=== PATIENT | female | born 1950 | race Asian ===

== ENCOUNTER 2022-11-06 10:08 | Outpatient (AMB) | payer OTHER, SELFPAY ==
--- NOTE | 2022-11-06 10:11 | MHC.OFFVIS ---
Intake Vital Signs 11/06/22 10:13 Height 5 ft 2 in Weight 110 lb BMI 20.1 BP 122/70 Blood Pressure Location Lt brachial Position Sitting Pulse 72 Pulse Source Pulse Oximeter Pulse Oximetry (%) 98 Oxygen Delivery Method Room Air Intake Visit Reasons: Follow up for Headaches Intake Note: pt is here for headaches, patient states she was taking medication for headaches but needs refill and hasnt had the medication for awhile due to no refills Business Intelligence Administrator Required: Yes Business Intelligence Administrator Language: Omani Business Intelligence Administrator Name: corina hagan [id number] Information Interpreted: non-clinical & clinical Accompanied by: Self / Same As Patient Allergies No Known Allergies Allergy (Verified 11/06/22 10:12) Medication List - Last Reconciled 11/06/22 by HEVER Jaimes abacavir 600 mg PO DAILY alendronate 70 mg PO QWEEK atorvastatin 10 mg PO DAILY baclofen 10 mg PO BEDTIME PRN 30 days calcium carbonate-vitamin D3 600 mg-5 mcg (200 unit) 0 tabs PO cyclosporine 0.05% drps ophthalmic (eye) dolutegravir (Tivicay) 50 mg PO DAILY lamivudine 150 mg PO DAILY levothyroxine 50 mcg PO DAILY magnesium oxide 400 mg PO DAILY 30 days riboflavin (vitamin B2) (Vitamin B-2) 200 mg (2 x 100 mg) PO BID 30 days solifenacin 10 mg PO DAILY trospium 20 mg PO DAILY HPI HPI Comments History of Present Illness Details 72-yr-old female presents for f/u visit. Pt denies any significant interval medical changes. She has been having an occasional headache, which she has been using Tylenol for. She still has some neck discomfort- which magnesium and baclofen helped, but has run out. She does note that she has areas on her head that feel a bit bigger nad sore- these come and go. She states her vision is better- after having ? left cataract surgery. No balance issues, falls. Sometimes may have a tremor in the left arm- may feel numb as well. She is able to do her ADLs and IADLs w/o diff. She can be forgetful- a little at times. Her older sister and sister lives in [place]. She has never driven. [facility] Medical History (Updated 11/06/22 @ 11:29 by HEVER Jaimes) HIV (human immunodeficiency virus infection) HLD (hyperlipidemia) Hypothyroidism Kidney disease Osteoporosis Surgical History Hx of cataract surgery Social History Alcohol intake: never Patient Tobacco Use Status: Never used Tobacco Review of Systems Const All systems reviewed & are unremarkable except as noted in HPI and below Physical Exam Vital Signs: Last Vital Signs Pulse 72 11/06/22 10:13 BP 122/70 11/06/22 10:13 Pulse Ox 98 11/06/22 10:13 Oxygen Delivery Method Room Air 11/06/22 10:13 BMI result Body Mass Index 20.1 Const General: cooperative and no acute distress Orientation/consciousness: patient oriented x3 HEENT Other: No palpable scalp tenderness. No visible cysts, papules, rashes, or erythema. Head: Yes normocephalic Resp Effort & Inspection: normal respiratory effort and able to speak in complete sentences Neuro Other: Mild hand fidgeting BUE MADIHA- intact Mild BUE dysmetria on finger-nose- note pt required multiple reinforcements for pt to fully complete finger-nose exam. 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 Code(s): G93.0 - Cerebral cysts Plan Resume Magnesium 400mg qhs. Resume Baclofen 10mg qhs prn cervicalgia/headache. Previous headcahe trials: Amitriptyline- not tolerated. Pt advised to undergo f/u brain MRI to assess status of retrocerebellar arachnoid cyst Orders: Orders MR head/brain wo con Today G93.0 - Cerebral cysts, M54.2 - Cervicalgia, Q04.9 - Congenital malformation of brain, unspecified, R51.9 - Headache, unspecified Medications: New baclofen 10 mg PO BEDTIME 30 days PRN 30 tabs 6RF headache magnesium oxide 400 mg PO DAILY 30 days 30 tabs 6RF Coding Level of Care Code Est Pt Level 4 (66752) Diagnoses Headache R51.9 Cervicalgia M54.2 Congenital malformation of brain Q04.9 Arachnoid cyst G93.0
[2022-11-06 10:13] VITALS: BP 122/70; PULSE 72; O2SAT 98; BMI 20.1
== END 2022-11-06 10:56 | disposition home or self-care (01) ==
PROVIDERS: Visit Provider Nurse Practitioner Family
DX: R51.9 Headache, unspecified (principal); M54.2 Cervicalgia; Q04.9 Congenital malformation of brain, unspecified; G93.0 Cerebral cysts
CPT/HCPCS: 99214

== ENCOUNTER → 2022-11-06 10:08 | Outpatient (BNVA) | payer OTHER, SELFPAY | PROVIDERS: Visit Provider Nurse Practitioner Family | DX: R51.9 Headache, unspecified (principal); M54.2 Cervicalgia; Q04.9 Congenital malformation of brain, unspecified; G93.0 Cerebral cysts | CPT/HCPCS: 99212 ==

== ENCOUNTER 2023-02-14 11:04 | Outpatient (REF) | payer OTHER, SELFPAY ==
--- NOTE | ~2023-02-14 | MR_ITS ---
EXAMINATION: MRI OF THE BRAIN WITHOUT CONTRAST CLINICAL INFORMATION: Cerebral cysts. COMPARISON: There are no prior studies available for comparison at time of dictation. TECHNIQUE: MRI of the brain was obtained using routine sequences without contrast. FINDINGS: No diffusion abnormalities are identified to suggest an acute or subacute infarct. No mass effect or midline shift is seen. There is mild commensurate prominence of the ventricles and sulci consistent with diffuse volume loss. There are a few scattered foci of hyperintense T2 and FLAIR signal in the periventricular and subcortical white matter, most consistent with chronic microvascular ischemic changes. There is a large arachnoid cyst in the posterior fossa which measures approximately 7.4 x 9.4 x 9.0 cm in oblique AP, transverse and craniocaudal dimensions. It does not communicate with the 4th ventricle. There is some mass effect on the dorsal cerebellar hemispheres and cerebellar vermis. The brainstem appears normal. No pathologic magnetic susceptibility artifact is identified on the gradient refocused acquisition. The craniovertebral junction, marrow signal, and midline structures are normal. The major intracranial flow-voids at the level of the [place] are preserved. The dural venous sinus flow-voids are maintained. There have been bilateral lens extractions. The frontal sinuses are hypoplastic. The mastoid air cells and the other paranasal sinuses are well-aerated. MR/MR head/brain wo con IMPRESSION: 1. There is a large arachnoid cyst in the posterior fossa, with mass effect on the cerebellar structures. There is no communication with the ventricular system. Comparison can be made if prior studies become available. 2. There are no acute bleeds or territorial infarcts. 3. There are chronic microvascular ischemic changes and there is diffuse volume loss.
== END 2023-02-14 11:05 | disposition home or self-care (01) ==
LOC: HO.MRI 11:04
PROVIDERS: PCP Internal Medicine; Visit Provider Nurse Practitioner Family
DX: G93.0 Cerebral cysts (principal); Q04.9 Congenital malformation of brain, unspecified; R51.9 Headache, unspecified; M54.2 Cervicalgia
CPT/HCPCS: 70551

== ENCOUNTER 2023-05-09 10:59 | Outpatient (AMB) | payer OTHER, SELFPAY ==
--- NOTE | 2023-05-09 11:03 | A.OFFVIS_ITS ---
Intake Vital Signs 05/09/23 11:04 Height 5 ft 2 in Weight 117 lb BMI 21.4 BP 134/80 Blood Pressure Location Rt brachial Position Sitting Intake Visit Reasons: 6m Follow up Headaches-Confirmed Intake Note: Patient presents for 6 month follow up. she feels like the headaches are the same,she feels dizzy and feels is not normal Allergies No Known Allergies Allergy (Verified 05/09/23 11:07) Medication List - Last Reconciled 05/09/23 by HEVER Jaimes abacavir 600 mg PO DAILY alendronate 70 mg PO QWEEK atorvastatin 10 mg PO DAILY baclofen 10 mg PO BEDTIME PRN 30 days calcium carbonate-vitamin D3 600 mg-5 mcg (200 unit) 0 tabs PO cyclosporine 0.05% drlew ophthalmic (eye) dolutegravir (Tivicay) 50 mg PO DAILY lamivudine 150 mg PO DAILY levothyroxine 50 mcg PO DAILY magnesium oxide 400 mg PO DAILY 30 days riboflavin (vitamin B2) (Vitamin B-2) 200 mg (2 x 100 mg) PO BID 30 days solifenacin 10 mg PO DAILY trospium 20 mg PO DAILY HPI HPI Comments History of Present Illness Details 72-yr-old female presents for f/u visit. Accompanied by her NBA PLAYER, Alina. Pt denies any significant interval medical changes. She is having more headache- TOTH is more pressure, but sometimes head burning heaviness (better when laying down), more like she had a few years ago prior to starting Baclofen and Magnesium. When headache is more bothersome, it is a/w phonophobia. She also endorses buzzing tinnitus more so in the morning, distance vision blurriness, chronic neck cracking and tightness- feeling right sided neck/o ccipital region burning pulling sensation with left head turn. She can be dizzy at times. Denies gait problems, diplopia, dysphagia, urinary/bowel incontinence, weakness. May hear somebody talking around her, but no one is there but maybe her neighbors her chu are thin. These newer neighbors make her nervous/stressed as the neighbors are loud. She is taking Riboflavin qam, Mag 400mg qhs. Baclofen 10mg prn headache, which helps. Does not want to take baclofen too regularly- worried it'll stop working. 02/04/23, MRI OF THE BRAIN WITHOUT CONTR AST FINDINGS: No diffusion abnormalities are identified to suggest an acute or subacute infarct. No mass effect or midline shift is seen. There is mild commensurate prominence of the ventricles and sulci consistent with diffuse volume loss. There are a few scattered foci of hyperintense T2 and FLAIR signal in the periventricular and subcortical white matter, most consistent with chronic microvascular ischemic changes. There is a large arachnoid cyst in the posterior fossa which measures approximately 7.4 x 9.4 x 9.0 cm in oblique AP, transverse and craniocaudal dimensions. It does not communicate with the 4th ventricle. There is some mass effect on the dorsal cerebellar hemispheres and cerebellar vermis. The brainstem appears normal. No pathologic magnetic susceptibility artifact is identified on the gradient refocused acquisition. The craniovertebral junction, marrow signal, and midline structures are normal. The major intracranial flow-voids at the level of the [place] are preserved. The dural venous sinus flow-voids are maintained. There have been bilateral lens extractions. The frontal sinuses are hypoplastic. The mastoid air cells and the other paranasal sinuses are well-aerated. IMPRESSION: 1. There is a large arachnoid cyst ( 7.4 x 9.4 x 9.0 cm in oblique AP, transverse and craniocaudal dimensions) in the posterior fossa, with mass effect on the cerebellar structures. There is no communication with the ventricular system. Comparison can be made if prior studies become available. 2. There are no acute bleeds or territor ial infarcts. 3. There are chronic microvascular ische melissa changes and there is diffuse volume loss. 05/06/2018, [facility], Brain MRI w/o: Retrocerebellar 5 x 8 x 8 cm arachnoid cyst versus giant cisterna magna. 01/29/12, [facility], Brain MRI w/o: large arachnoid cyst in the posterior fossa w/ expansion of the posteriorfossa, remodeling of the calvarium and mild mass effect on the cerebellar structures. Arachnoid cyst measures 9 cm craniocaudally, 5.8 cm anterior posteriorly, 9.5 cm medial laterally. [facility] Medical History (Updated 05/09/23 @ 11:51 by HEVER Jaimes) Kidney disease Hypothyroidism Osteoporosis HLD (hyperlipidemia) HIV (human immunodeficiency virus infection) Surgical History Hx of cataract surgery Social History Alcohol intake: never Patient Tobacco Use Status: Never used Tobacco Physical Exam Vital Signs: Last Vital Signs BP 134/80 05/09/23 11:04 BMI result Body Mass Index 21.4 Const General: cooperative and no acute distress Orientation/consciousness: patient oriented x3 Resp Effort & Inspection: normal respiratory effort and able to speak in complete sentences Neuro Other: Bilateral posterior cervical tightness and tender points. No palpable scalp tenderness Mildly limited cervical range of motion throughout Tandem gait- slightly off-balance but able to take a few steps General: patient oriented x3 and deep tendon reflexes 2+ bilaterally Cranial nerves: Yes CN's II-XII intact bilaterally Cognition (Neuro): normal cognition Motor exam (neuro): 5/5 motor strength present throughout Coordination: [id number] test normal Psych Appearance: grossly normal Mental Status: mental status grossly normal Speech and movement: Normal speech and movement present Affect: normal affect Attitude: cooperative Assessment & Plan Assessment & Plan (1) Headache: Code(s): R51.9 - Headache, unspecified (2) Cervicalgia: Code(s): M54.2 - Cervicalgia (3) Dizziness: Code(s): R42 - Dizziness and giddiness (4) 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 Code(s): G93.0 - Cerebral cysts Plan Reviewed brain MRI- known large posterior fossa arachnoid cyst, cerebral volume loss, and mild white matter changes c/w chronic microangiopathic ischemic changes. We will reach out to Radiology to see if they can compare previous MRI images and reports with most recent MRI findings, as most recent arachnoid cyst measurements are slightly larger than previously noted. Jan 2023: posterior fossa arachnoid cyst measuring approx 7.4 x 9.4 x 9.0 cm in oblique AP, transverse and craniocaudal dimensions) in the posterior fossa, with mass effect on the cerebellar structures. 05/06/2018, [facility], Brain MRI w/o: Retrocerebellar 5 x 8 x 8 cm arachnoid cyst versus giant cisterna magna. 01/29/12, [facility], Brain MRI w/o: posterior fossa arachnoid cyst measuring 9 cm craniocaudally, 5.8 cm anterior posteriorly, 9.5 cm medial laterally.w/ expansion of the posteriorfossa, remodeling of the calvarium and mild mass effect on the cerebellar structures. Will refer pt for home PT, as pt is homebound as she requires asist to safely leave her home- d/t language barrier, she does not drive, dizziness, headache. Riboflavin 400 mg q.a.m. Magnesium 400mg qhs. Trial adding gabapentin 100-200 mg q.h.s. Baclofen 10mg qhs prn cervicalgia/headache. Previous headache trials: Amitriptyline- not tolerated. f/u in 3 months or sooner prn. Orders: Referrals [facility] Referral G93.0 - Cerebral cysts, M54.2 - Cervicalgia, Q04.9 - Congenital malformation of brain, unspecified, R42 - Dizziness and giddiness, R51.9 - Headache, unspecified Medications: New gabapentin 100 - 200 mg (1 - 2 x 100 mg) PO BEDTIME 30 days 60 caps 4RF Refilled magnesium oxide 400 mg PO DAILY 30 days 30 tabs 6RF baclofen 10 mg PO BEDTIME 30 days PRN 30 tabs 6RF headache riboflavin (vitamin B2) (Vitamin B-2) 200 mg (2 x 100 mg) PO BID 30 days 120 tabs 6RF Coding Level of Care Code Est Pt Level 4 (61371) Diagnoses Headache R51.9 Cervicalgia M54.2 Dizziness R42 Congenital malformation of brain Q04.9 Arachnoid cyst G93.0
[2023-05-09 11:04] VITALS: BP 134/80; BMI 21.4
== END 2023-05-09 11:57 | disposition home or self-care (01) ==
PROVIDERS: PCP Internal Medicine; Visit Provider Nurse Practitioner Family
DX: R51.9 Headache, unspecified (principal); M54.2 Cervicalgia; R42 Dizziness and giddiness; Q04.9 Congenital malformation of brain, unspecified; G93.0 Cerebral cysts
CPT/HCPCS: 99214

== ENCOUNTER → 2023-05-09 10:59 | Outpatient (BNVA) | payer OTHER, SELFPAY | PROVIDERS: PCP Internal Medicine; Visit Provider Nurse Practitioner Family | DX: R51.9 Headache, unspecified (principal); R42 Dizziness and giddiness; M54.2 Cervicalgia; G93.0 Cerebral cysts; Q04.9 Congenital malformation of brain, unspecified | CPT/HCPCS: 99212 ==

== ENCOUNTER 2023-09-12 10:52 | Outpatient (AMB) | payer OTHER, SELFPAY ==
--- NOTE | 2023-09-12 10:57 | A.OFFVIS_ITS ---
Vital Signs 09/12/23 11:28 Height 5 ft 2 in Weight 113 lb 8 oz BMI 20.8 BP 120/62 Blood Pressure Location Lt brachial Position Sitting Pulse 67 Pulse Oximetry (%) 98 Oxygen Delivery Method Room Air Intake Visit Reasons: 4 mo f/u-LVM Intake Note: Patient presents for 4 months f/u. When turning on left side feels pain on right side of head. When taking Gabapentin feeling very sleepy and dizzy. Instructor Hairspring Name: Beryl [id number] Information Interpreted: clinical only Accompanied by: Spouse Allergies No Known Allergies Allergy (Verified 09/12/23 11:14) Medication List - Last Reconciled 09/12/23 by HEVER Jaimes abacavir 600 mg PO DAILY alendronate 70 mg PO QWEEK atorvastatin 10 mg PO DAILY baclofen 10 mg PO BEDTIME PRN 30 days calcium carbonate-vitamin D3 600 mg-5 mcg (200 unit) 0 tabs PO cyclosporine 0.05% drps ophthalmic (eye) dolutegravir (Tivicay) 50 mg PO DAILY gabapentin 100 - 200 mg (1 - 2 x 100 mg) PO BEDTIME 30 days lamivudine 150 mg PO DAILY levothyroxine 50 mcg PO DAILY magnesium oxide 400 mg PO DAILY 30 days riboflavin (vitamin B2) (Vitamin B-2) 200 mg (2 x 100 mg) PO BID 30 days solifenacin 10 mg PO DAILY trospium 20 mg PO DAILY HPI Comments Details: 73-yr-old female presents for f/u visit, accompanied by her friend. Pt denies any significant interval medical changes. We were able to obtain previous brain imaging, radiologist was able to compare previous and recent brain mRI results- stable dandy walker type cyst. She can have a quick right occipital focal pain when she turns her head to the right. Denies dizziness. It can occur a few times a day, but then not for a few days. Gabapentin 100mg at bedtime made her too sleepy. She is compliant w/ Mag, B2, and Baclofen. She did not hear from the home PT. [facility] Medical History (Updated 05/09/23 @ 11:51 by HEVER Jaimes) Kidney disease Hypothyroidism Osteoporosis HLD (hyperlipidemia) HIV (human immunodeficiency virus infection) Surgical History Hx of cataract surgery Social History Alcohol intake: never Patient Tobacco Use Status: Never used Tobacco Physical Exam Vital Signs: Last Vital Signs Pulse 67 09/12/23 11:28 BP 120/62 09/12/23 11:28 Pulse Ox 98 09/12/23 11:28 Oxygen Delivery Method Room Air 09/12/23 11:28 BMI result Body Mass Index 20.8 Const General: cooperative and no acute distress Orientation/consciousness: patient oriented x3 Resp Effort & Inspection: normal respiratory effort and able to speak in complete sentences Neuro Other: No [place] scalp tenderness Bilateral R > L neck tightness and tenderness. 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 Code(s): G93.0 - Cerebral cysts Category: Medical Plan Reviewed brain MRI reuslst again0 stable arachnoid cyst. Jan 2023: posterior fossa arachnoid cyst measuring approx 7.4 x 9.4 x 9.0 cm in oblique AP, transverse and craniocaudal dimensions) in the posterior fossa, with mass effect on the cerebellar structures. 05/06/2018, [facility], Brain MRI w/o: Retrocerebellar 5 x 8 x 8 cm arachnoid cyst versus giant cisterna magna. 01/29/12, [facility], Brain MRI w/o: posterior fossa arachnoid cyst measuring 9 cm craniocaudally, 5.8 cm anterior posteriorly, 9.5 cm medial laterally.w/ expansion of the posteriorfossa, remodeling of the calvarium and mild mass effect on the cerebellar structures. ? Will again pt for home PT for PT eval & tx for myofascial release, craniosacral tx. Pt is homebound- pt needs assist, dizziness, headache, does not drive, language barrier., as pt is homebound as she requires asist to safely leave her home- d/t language barrier, she does not drive, dizziness, headache. Pt will need information mailed to her in [place]. Riboflavin 400 mg q.a.m. Magnesium 400mg qhs. Stop gabapentin 100mg- caused sleepiness. Try increasing Baclofen from 10mg qhs to 10mg bid or 20mg qhs- for cervicalgia/headache. Previous headache trials: Amitriptyline- not tolerated. ? f/u in 6 months or sooner prn. Orders: Referrals [facility] Referral M54.2 - Cervicalgia, R51.9 - Headache, unspecified Medications: Changed From baclofen 10 mg PO BEDTIME 30 days PRN 30 tabs 6RF headache To baclofen 10 mg PO BID 30 days 60 tabs 6RF headache Refilled magnesium oxide 400 mg PO DAILY 30 days 30 tabs 6RF riboflavin (vitamin B2) (Vitamin B-2) 200 mg (2 x 100 mg) PO BID 30 days 120 tabs 6RF Discontinued gabapentin Discontinued Reason: Doctor's Order 100 - 200 mg (1 - 2 x 100 mg) PO BEDTIME 30 days 60 caps 4RF Coding Level of Care Code Est Pt Level 4 (08142) Diagnoses Headache R51.9 Cervicalgia M54.2 Congenital malformation of brain Q04.9 Arachnoid cyst G93.0
[2023-09-12 11:28] VITALS: BP 120/62; PULSE 67; O2SAT 98; BMI 20.8
== END 2023-09-12 11:50 | disposition home or self-care (01) ==
PROVIDERS: PCP Internal Medicine; Visit Provider Nurse Practitioner Family
DX: R51.9 Headache, unspecified (principal); M54.2 Cervicalgia; Q04.9 Congenital malformation of brain, unspecified; G93.0 Cerebral cysts
CPT/HCPCS: 99214

== ENCOUNTER → 2023-09-12 10:52 | Outpatient (BNVA) | payer OTHER, SELFPAY | PROVIDERS: PCP Internal Medicine; Visit Provider Nurse Practitioner Family | DX: R51.9 Headache, unspecified (principal); Q04.9 Congenital malformation of brain, unspecified; M54.2 Cervicalgia; G93.0 Cerebral cysts | CPT/HCPCS: 99212 ==

== ENCOUNTER 2024-04-02 09:28 | Outpatient (AMB) | payer OTHER, SELFPAY ==
[2024-04-02 10:00] VITALS: BMI 21.3
--- NOTE | 2024-04-02 10:00 | A.OFFVIS_ITS ---
Vital Signs 04/02/24 10:00 Height 5 ft 2 in Weight 116 lb 6 oz BMI 21.3 Intake Visit Reasons: 7 month f/u Phone Specialist Required: Yes Phone Specialist Name: Ken [id number] Information Interpreted: non-clinical & clinical Accompanied by: Self / Same As Patient Allergies No Known Allergies Allergy (Verified 04/02/24 10:04) Medication List - Last Reconciled 04/02/24 by Rickie Rowe PA-C abacavir 600 mg PO DAILY alendronate 70 mg PO QWEEK amlodipine 5 mg PO DAILY atorvastatin 10 mg PO DAILY baclofen 10 mg PO BID 30 days calcium carbonate-vitamin D3 600 mg-5 mcg (200 unit) 0 tabs PO cyclobenzaprine 10 mg PO TID cyclosporine 0.05% drps ophthalmic (eye) diclofenac sodium 1% topical dolutegravir (Tivicay) 50 mg PO DAILY lamivudine 150 mg PO DAILY levothyroxine 50 mcg PO DAILY magnesium oxide 400 mg PO DAILY 30 days mupirocin 2% topical BID prednisolone acetate 1% drps ophthalmic (eye) prednisone 20 mg PO BID riboflavin (vitamin B2) (Vitamin B-2) 200 mg (2 x 100 mg) PO BID 30 days solifenacin 10 mg PO DAILY sulfamethoxazole-trimethoprim 800-160 mg 1 tab PO BID tizanidine 4 mg PO BEDTIME trospium 20 mg PO DAILY HPI Comments Details: 73-yr-old female presents for f/u visit, for arachnoid. PCP is Dr. Way at [facility]. Pt denies any significant interval medical changes. We were able to obtain previous brain imaging, radiologist was able to compare previous and recent brain mRI results- stable dandy walker type cyst. She can have a quick right occipital focal pain when she turns her head to the right. 2-3 headaches per week worse in the mornings last about 1-3 hour, occipital to the trapezius, heaviness, stretches the SCM to the with head twist to the left and it goes away 2-3 min later. Dizziness persists, bilateral leg pain intense all day worse in the evening. Her Balance is wobbly, has pain down the L. leg> R. side. Denies Nausea, Vomiting, Falls. She is concerned regarding contraindications of muscle relaxers and taking both simultaneously. Discussed patient take the medication every other night as needed for pain, Tizanidine 400mg PO. Discussed using a heating pad for neck and to use [place] balm or [place], topically as needed for pain. Discussed taking B2 - helps with reduction and inflammation of nerves and m igraines. Memory, diet, mood, and sleep is good at baseline with medications she sleeps better. ADLs independent, can dress herself, cook, clean, lives alone. She is compliant w/ Mag, B2, and Baclofen. She is not open to PT visits at this time. [facility] Medical History Kidney disease Hypothyroidism Osteoporosis HLD (hyperlipidemia) HIV (human immunodeficiency virus infection) Surgical History Hx of cataract surgery Social History Alcohol intake: never Patient Tobacco Use Status: Never used Tobacco Physical Exam Vital Signs: BMI result Body Mass Index 21.3 Const General: cooperative and no acute distress Orientation/consciousness: patient oriented x3 Resp Effort & Inspection: normal respiratory effort and able to speak in complete sentences Neuro Other: No palpbale scalp tenderness Bilateral R > L neck tightness and tenderness. General: patient oriented x3 Cranial nerves: Yes CN's II-XII intact bilaterally and Yes Ability to bilater ally rotate head present Cognition (Neuro): normal cognition Psych Appearance: grossly normal Mental Status: mental status grossly normal Speech and movement: Normal speech and movement present Affect: normal affect Attitude: cooperative Assessment & Plan Assessment & Plan (1) Arachnoid cyst: Comment: retrocerebellar arachnoid cyst and Dandy-Walker spectrum anatomy. 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 Code(s): Q04.9 - Congenital malformation of brain, unspecified Category: Medical (4) Headache: Code(s): R51.9 - Headache, unspecified Category: Medical (5) Cervicalgia: Code(s): M54.2 - Cervicalgia Category: Medical Plan Reviewed brain MRI results stable arachnoid cyst. Jan 2023: posterior fossa arachnoid cyst measuring approx 7.4 x 9.4 x 9.0 cm in oblique AP, transverse and craniocaudal dimensions) in the posterior fossa, with mass effect on the cerebellar structures. 05/06/2018, [facility], Brain MRI w/o: Retrocerebellar 5 x 8 x 8 cm arachnoid cyst versus giant cisterna magna. 01/29/12, [facility], Brain MRI w/o: posterior fossa arachnoid cyst measuring 9 cm craniocaudally, 5.8 cm anterior posteriorly, 9.5 cm medial laterally.w/ expansion of the posteriorfossa, remodeling of the calvarium and mild mass effect on the cerebellar structures. ?Cervicalgia and Migraines PT prefers to do home PT exercises per direction, for myofascial release, craniosacral tx. Pt is homebound- pt needs assist, dizziness, headache, does not drive, language barrier and requires assistance to safely leave her home. Pt will need information mailed to her in [place]. Riboflavin 400 mg q.a.m. Magnesium 400mg qhs. Stopped gabapentin 100mg- caused sleepiness. Tizanidine 400mg PO daily, may skip a day if she feels too sedated and can cut pill in half as needed, she may rotate the medications, skip a day of Baclofen and take Tizanidine instead, depending on what works best for her. Try increasing Baclofen from 10mg qhs to 10mg bid or 20mg qhs- for cervicalgia/headache. Previous headache trials: Amitriptyline- not tolerated. ? EMG Bilateral legs numbness and pain. MRI monitor arachnoid cyst. f/u in 2 months. Orders: Orders NE electromyogram (EMG) Today G93.0 - Cerebral cysts, M54.2 - Cervicalgia, R26.89 - Other abnormalities of gait and mobility, R51.9 - Headache, unspecified MR head/brain wo/w con Today Q04.9 - Congenital malformation of brain, unspecified Medications: Refilled baclofen 10 mg PO BID 60 tabs 6RF headache 30 days Coding Level of Care Code Est Pt Level 4 (83053) Diagnoses Arachnoid cyst G93.0 Balance disorder R26.89 Congenital malformation of brain Q04.9 Headache R51.9 Cervicalgia M54.2 Time Spent (min) 50 Comment Worsening bilateral leg pain.
== END 2024-04-02 11:27 | disposition home or self-care (01) ==
PROVIDERS: PCP Internal Medicine; Visit Provider Physician Assistant Medical
DX: G93.0 Cerebral cysts (principal); R26.89 Other abnormalities of gait and mobility; Q04.9 Congenital malformation of brain, unspecified; R51.9 Headache, unspecified; M54.2 Cervicalgia
CPT/HCPCS: 99214

== ENCOUNTER → 2024-04-02 09:28 | Outpatient (BNVA) | payer OTHER, SELFPAY | PROVIDERS: PCP Internal Medicine; Visit Provider Physician Assistant Medical | DX: G93.0 Cerebral cysts (principal); R26.89 Other abnormalities of gait and mobility; Q04.9 Congenital malformation of brain, unspecified; M54.2 Cervicalgia; R51.9 Headache, unspecified | CPT/HCPCS: 99212 ==

== ENCOUNTER → 2024-05-15 10:09 | Outpatient (BNV) | payer OTHER, SELFPAY | PROVIDERS: PCP Internal Medicine; Visit Provider Radiology Diagnostic Radiology | DX: Q04.9 Congenital malformation of brain, unspecified (principal) | CPT/HCPCS: 70553 ==

== ENCOUNTER 2024-05-15 10:12 | Outpatient (REF) | payer OTHER, SELFPAY ==
--- NOTE | ~2024-05-15 | MR_ITS ---
EXAMINATION: MR BRAIN WITHOUT AND WITH CONTRAST CLINICAL INFORMATION: Congenital malformation of the brain, unspecified. Arachnoid cyst. Monitoring for mass effect COMPARISON: MRI dated February 14, 2023. TECHNIQUE: Multiplanar, multisequence MRI of the brain was obtained before and after the intravenous administration of 5.0 mL gadolinium based (Gadavist) without reported immediate complications. FINDINGS: There is a 6 x 10 x 10 cm extra-axial, nonenhancing, nonseptated, nonrestricted diffusion fluid signal characteristic abnormality centered in the posterior cranial fossa slightly to the left and crossing midline and right to left with the mass effect upon the cisterna magna and cerebellar hemispheres. The fourth ventricle is patent. The cerebellar vermis is intact. The craniocervical junction is intact. There is thinning of the occipital bone with the questionable areas of dehiscence. The brainstem is intact without signal abnormality or enhancing lesion. The cochlear and vestibular components of the 8th cranial nerves are normal. The cisternal segments and entry zones of the trigeminal nerves demonstrated no signal abnormality or enhancing mass. The cisternal segments and entry zones of the hypoglossal cranial nerves demonstrate no signal abnormality or enhancing lesion. The transverse sinuses sigmoid sinuses and jugular bulbs are patent with a dominant on the right side. The flow-void signal within the main vessels of the posterior cranial fossa is normal. There is mild CSF prominence of the Meckel's caves, bilaterally. There is a shallow nearly absent dorsal sella. The sellar/suprasellar region demonstrated no enhancing lesion or masses. The optic chiasm is intact. The craniocervical junction is intact. There is no descensus of the cerebellar tonsils below foramen magnum. No acute intracranial hemorrhage, midline shift, hydrocephalus or herniation. Baldwin-white matter differentiation is normal. No restricted diffusion. No enhancing lesion or signal abnormality within the orbits. MR/MR head/brain wo/w con IMPRESSION: Overall stable since prior examination. Consider a large arachnoid cyst versus pseudomeningocele, posterior cranial fossa. Electronically signed by: Ortega Craven MD 05/18/2024 08:57 AM EST
[2024-05-15] MEDS: gadobutroL 7.5 ML VIAL IVPUSH (11:30)
== END 2024-05-15 10:13 | disposition home or self-care (01) ==
LOC: HO.MRI 10:12
PROVIDERS: PCP Internal Medicine; Visit Provider Physician Assistant Medical
DX: Q04.9 Congenital malformation of brain, unspecified (principal)
CPT/HCPCS: 70553; A9585

== ENCOUNTER 2024-06-04 09:47 | Outpatient (AMB) | payer OTHER, SELFPAY ==
--- NOTE | 2024-06-04 08:06 | A.OFFVIS_ITS ---
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 MRI was compared with old MRI and Stable Dandy Walker Cyst. She can have a quick right occipital focal pain when she turns her head to the right. She is still having headaches 3-5 x a week, which last 5 - 10 minutes. Her head feels very heavy and worse in the mornings for about 1-3 hours. She has photophobia, phonophobia with flashes of light. The headaches are occipital to the trapezius, with heaviness, she stretches the SCM with a head twist to the left and it goes away for 2-3 min. She uses the home electronic massager on the lowest speed. When standing she must lean on something or stand still, because she feels like she loses her balance. She doesn't use a cane and doesn't want one. She feels dizzy and wobbly on her feet due to balance issues. She c/o intense bilateral leg pain all day worse in the evening. Her Balance is wobbly, has pain down the L. leg> R. side. Denies nausea, vomiting, Falls. She is concerned regarding contraindications of muscle relaxers and taking both simultaneously. Discussed patient take the medication every other night as needed for pain. Discussed using a heating pad for neck and to use [place] balm or [place], topically as needed for pain. Discussed taking B2 as it helps with reduction with inflammation of nerves and migraines. Memory, diet, mood, and sleep is good at baseline with medications she sleeps better. ADLs independent, can dress herself, cook, clean, lives alone. She is compliant w/ Mag, B2, and Baclofen and Tizanidine. She is not open to PT visits at this time. [facility] Medical History Kidney disease Hypothyroidism Osteoporosis HLD (hyperlipidemia) HIV (human immunodeficiency virus infection) Surgical History Hx of cataract surgery Social History Alcohol intake: never Patient Tobacco Use Status: Never used Tobacco Review of Systems Const All systems reviewed & are unremarkable except as noted in HPI and below Physical Exam Vital Signs: Last Vital Signs Pulse 70 06/04/24 09:58 BP 130/60 06/04/24 09:58 Pulse Ox 98 06/04/24 09:58 Oxygen Delivery Method Room Air 06/04/24 09:58 BMI result Body Mass Index 21.0 Const General: cooperative and no acute distress Orientation/consciousness: patient oriented x3 Eyes Pupils: Equal, round and reactive pupils present Neck Other: Difficulty moving the neck to the right and left and limited ROM bilaterally. Resp Effort & Inspection: normal respiratory effort and able to speak in complete sentences Neuro Other: No palpbale scalp tenderness Bilateral R > L neck tightness and tenderness. General: patient oriented x3 Cranial nerves: Yes CN's II-XII intact bilaterally, Yes Facial sensation intact/muscles of mastication intact, Yes Equal, round and reactive pupils present and Yes Normal accommodation reflex present Cognition (Neuro): normal cognition Motor exam (neuro): Abnormal motor strength present (4/5 Lower and Upper Ext) and Abnormal muscle tone present (Frail ) Deep tendon reflexes (DTR's): Right triceps reflex intensity grade: 2+, Left triceps reflex intensity grade: 2+, Rt Biceps (C5, C6): 2+, Left biceps reflex intensity grade: 2+, Right brachioradialis reflex intensity grade: 2+, Left brachioradialis reflex intensity grade: 2+, Right patellar reflex intensity grade: 2+ and Left patellar reflex intensity grade: 2+ Psych Thought process: Normal thought process present Thought content: Normal thought content present Results Reviewed Results Reviewed: MRI May 15, 2024 IMPRESSION: Overall stable since prior examination. Consider a large arachnoid cyst versus pseudomeningocele, posterior cranial fossa. 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: Code(s): H81.90 - Unspecified disorder of vestibular function, unspecified ear Category: Medical Qualifiers: Laterality: left Qualified Code(s): H81.92 - Unspecified disorder of vestibular function, left ear (4) Spasmodic torticollis: Code(s): G24.3 - Spasmodic torticollis Category: Medical (5) Headache: Code(s): R51.9 - Headache, unspecified Category: Medical Qualifiers: Headache chronicity pattern: chronic headache Headache type: cluster Intractability: intractable Qualified Code(s): G44.021 - Chronic cluster headache, intractable (6) Arachnoid cyst: Comment: retrocerebellar arachnoid cyst and Dandy-Walker spectrum anatomy. 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 Code(s): Q04.9 - Congenital malformation of brain, unspecified Category: Medical (8) Headache: Code(s): R51.9 - Headache, unspecified Category: Medical Qualifiers: Headache chronicity pattern: chronic headache Headache type: cluster Intractability: intractable Qualified Code(s): G44.021 - Chronic cluster headache, intractable Plan Reviewed brain MRI results stable arachnoid cyst. MRI May 15, 2024 IMPRESSION: Jan 2023: posterior fossa arachnoid cyst measuring approx 7.4 x 9.4 x 9.0 cm in oblique AP, transverse and craniocaudal dimensions) in the posterior fossa, with mass effect on the cerebellar structures. 05/06/2018, [facility], Brain MRI w/o: Retrocerebellar 5 x 8 x 8 cm arachnoid cyst versus giant cisterna magna. 01/29/12, [facility], Brain MRI w/o: posterior fossa arachnoid cyst measuring 9 cm craniocaudally, 5.8 cm anterior posteriorly, 9.5 cm medial laterally.w/ expansion of the posteriorfossa, remodeling of the calvarium and mild mass effect on the cerebellar structures. Spasmodic Torticollis 06/04/2024 Difficulty with rotation of the neck, ROM is limited to the Left>R. Would like to try Botox in the future ?Cervicalgia and Migraines Sumatriptan Trial for the onset of headaches take 50mg PO, may take one additional tablet 2 hours after the first dose. Do not exceed more than 2 tablets with in 24 hours for a total of 100mg PO daily. PT prefers to do home PT exercises per direction, for myofascial release, craniosacral tx. Pt is homebound- pt needs assist, dizziness, headache, does not drive, language barrier and requires assistance to safely leave her home. Pt will need information mailed to her in [place]. Riboflavin 400 mg q.a.m. Magnesium 400mg qhs. Stopped gabapentin 100mg- caused sleepiness. Tizanidine 400mg PO daily, may skip a day if she feels too sedated and can cut pill in half as needed, she may rotate the medications, skip a day of Baclofen and take Tizanidine instead, depending on what works best for her. Try increasing Baclofen from 10mg qhs to 10mg bid or 20mg qhs- for cervicalgia/headache. Previous headache trials: Amitriptyline- not tolerated. ? EMG Bilateral legs numbness and pain. (Patient did not complete due to language barrier) will try again. f/u in 2 months. Medications: New tizanidine 4 mg PO BEDTIME 30 tabs 2RF Cervicaliga MDD 4mg M54.2 - Cervicalgia sumatriptan succinate take 1 tab at onset of headache; if no relief may repeat 1 tab after at least 2 hrs; max = 4 tabs/24 hr PO 12 tabs 0RF headaches Refilled baclofen 10 mg PO BID 30 days 60 tabs 6RF headache magnesium oxide 400 mg PO DAILY 30 days 30 tabs 6RF riboflavin (vitamin B2) (Vitamin B-2) 200 mg (2 x 100 mg) PO BID 30 days 120 tabs 6RF Patient Instructions: May rotate Tizanidine and Baclofen for muslce strain. Start using Sumatriptan for headaches as directed. Continue with magnesium 400mg PO daily and Riboflaving 200mg daily. Use a cane if balance issues are worsening. F/U in 3-4 months. Coding Level of Care Code Est Pt Level 4 (16559) Diagnoses Balance disorder R26.89 Cervicalgia M54.2 Balance problem due to vestibular dysfunction of left ear H81.92 Laterality: left Spasmodic torticollis G24.3 Intractable chronic cluster headache G44.021 Headache chronicity pattern: chronic headache Headache type: cluster Intractability: intractable Arachnoid cyst G93.0 Congenital malformation of brain Q04.9 Time Spent (min) 40
[2024-06-04 09:58] VITALS: BP 130/60; PULSE 70; O2SAT 98; BMI 21.0
--- OUTSIDE RECORDS SUMMARY | 2024-06-04 10:16 | XMS_ITS | Clinical Summary ---
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 Active magnesium oxide (MAG-OX) 400 mg (241.3 elemental magnesium) tablet Magnesium Oxide -Mg Supplement 400 (240 Mg) MG Tab 3 Active abacavir (ZIAGEN) 300 mg tablet Take 1 tablet (300 mg total) by mouth 2 (two) times a day. Active baclofen (LIORESAL) 10 mg tablet Take 1 Tablet by mouth 3 times daily. Active calcium carbonate-vitami n D3 600 mg-5 mcg (200 unit) per tablet Take 1 tablet by mouth 2 (two) times a day. 2 Active cyanocobalamin (VITAMIN B-12) 1,000 mcg tablet Take 500 mcg by mouth daily. Active cyclobenzaprine (FLEXERIL) 10 mg tablet Take 1 Tablet by mouth 3 times daily as needed. 3 times a day for 3 days Active dolutegravir (TIVICAY) 50 mg tablet Take by mouth. Activ e gabapentin (NEURONTIN) 100 mg capsule Take 2 Capsules by mouth at bedtime. 4 Active guaiFENesin (MUCINEX) 600 mg 12 hr tablet Take 1 tablet (600 mg total) by mouth 2 (two) times a day. 4 Active lamiVUDine (EPIVIR) 150 mg tablet Take 1 tablet (150 mg total) by mouth 2 (two) times a day. Active levothyroxine (SYNTHROID, LEVOTHROID) 50 mcg tablet Take 1 tablet (50 mcg total) by mouth 1 (one) time each day. 4 Active lidocaine 4 % patch Apply 1 Patch topically every 12 hours. 4 Active lidocaine (LIDODERM) 5 % patch Place 1 Patch onto the skin every 24 hours. Apply for no more than 12 hours in any 24 hour period. Active magnesium oxide (MAG-OX) 400 mg (241.3 elemental magnesium) tablet Take 400 mg by mouth daily. Active predniSONE (DELTASONE) 20 mg tablet 3 tab for 3 days,2 tab for 3 days,1 tab for 3 days 4 Active riboflavin (VITAMIN B2) 100 mg tablet Take 1 capsule by mouth 1 (one) time each day. Active trospium (SANCTURA) 20 mg tablet Take 1 tablet (20 mg total) by mouth 1 (one) time each day. 4 Active camphor-methyl salicyl-menthoL (Salonpas) 3.1 %-10 %-6 % (large) adhesive patch,medicatedI ndications:Chron ic back pain, unspecified back location, unspecified back pain laterality,Right shoulder pain, unspecified chronicity Apply 1 patch topically 1 (one) time each day if needed (pain). Remove at bedtime. 30 patch 5 4 Active mupirocin (BACTROBAN) 2 % ointmentIndicati ons:Eczema, unspecified type Apply 1 Application topically 2 (two) times a day. 22 g 3 4 Active tiZANidine (ZANAFLEX) 4 mg tabletIndication s:Chronic back pain, unspecified back location, unspecified back pain laterality,Right shoulder pain, unspecified chronicity Take 1 tablet (4 mg total) by mouth at bedtime as needed for muscle spasms. 30 tablet 3 4 Active naproxen (EC NAPROSYN) 500 mg EC tabletIndication s:osteoarthritis ,pain Take 1 tablet (500 mg total) by mouth 2 (two) times a day if needed for mild pain. Do not crush, chew, or split. Take with food. 60 tablet 11 4 Active atorvastatin (LIPITOR) 10 mg tablet TAKE 1 TABLET BY MOUTH DAILY 90 tablet 2 4 Active diclofenac (VOLTAREN) 1 % topical gel Apply 2 g topically 2 (two) times a day. 100 g 1 4 Active alendronate (FOSAMAX) 70 mg tablet TAKE 1 TABLET BY MOUTH EVERY 7 DAYS 12 tablet 2 4 Active amLODIPine (NORVASC) 5 mg tablet TAKE 1 TABLET BY MOUTH DAILY 90 tablet 1 4 Active triamcinolone (KENALOG) 0.1 % cream Apply to affected area 1-2 times daily as needed. Avoid face and groin. 30 g 5 09/13/19 25 Active Active Problems Problem Noted Date Diagnosed Date Primary hypertension 05/22/2023 Nephrolithiasis 04/08/2018 Overview (01/15/2024): S/p lithotripsy; 10/2013 h/o Stent Tubular adenoma of colon 04/08/2018 Overview (01/15/2024): S/p resection HIV (human immunodeficiency virus infection) 04/2017 Overview (01/15/2024): On HAART Hyperlipidemia 07/31/2017 Hypothyroidism 07/31/2017 Constipation 09/26/2016 Osteoporosis 04/08/2013 Chronic sinusitis 10/16/2012 Carpal tunnel syndrome 10/15/2012 Insomnia 10/15/2012 Immunizations Name Administration Dates Next Due Hep A, Unspecified 04/23/2004 Hepatitis B (Opwvigc-V-Zalvp , Recombivax HB-Adult) 19yo and older 04/23/2004 Influenza trivalent, 0.5mL ( Fluzone High-dose) 65yo and older 01/02/2019 Pneumococcal conjugate 13 va lent (Prevnar 13, PCV13) 2mo and older 08/05/2013 Pneumococcal polysaccharide 23 valent (Pneumovax 23) 2yo and older 03/06/2011 Tdap Tetanus diptheria acell ular pertussis (Boostrix; Adacel) 7yo and older 09/18/2011 Surgical History Surgery Date Site/Laterality Comments BOWEL RESECTION PROCEDURE: HISTORICAL BOWEL RESECTION; COMMENT: for tubular adenoma CYSTOSCOPY PROCEDURE: HISTORICAL CYSTOSCOPY LITHOTRIPSY 10/2013 PROCEDURE: HISTORICAL LITHOTRIPSY; COMMENT: and Stent placement Medical History Medical History Date Comments Carpal tunnel syndrome 10/15/2012 DX:Carpal tunnel syndrome Chronic sinusitis 10/16/2012 DX:Chronic sin usitis Constipation 09/26/2016 DX:Constipation HIV (human immunodeficiency virus infection) (CMS/HCC) 11/20/2017 DX:HIV (human immunodeficien cy virus infection) (HCC); COMMENT: On HAART Hyperlipidemia 07/31/2017 DX:Hyperlipidemi a Hypothyroidism 07/31/2017 DX:Hypothyroidis m Insomnia 10/15/2012 DX:Insomnia Nephrolithiasis 04/08/2018 DX:Nephrolithias is; COMMENT: S/p lithotripsy; 10/2013 h/o Stent Osteoporosis 04/08/2013 DX:Osteoporosis Tubular adenoma of colon 04/08/2018 DX:Tubu lar adenoma of colon; COMMENT: S/p resection HCV (hepatitis C virus) DX:HCV ( hepatitis C virus); COMMENT: treated by GI HBV (hepatitis B virus) infection DX:HBV (hepatitis B virus) infection; COMMENT: cleared Social History Tobacco Use Types Packs/Day Years Used Date Smoking Tobacco: Never Smokeless Tobacco: Never Alcohol Use Standard Drinks/Week Comments No 0 (1 standard drink = 0.6 oz pur e alcohol) Comments Unknown Sex and Gender Information Value Date Recorded Sex Assigned at Not on file Legal Sex Female 8:11 PM EST Gender Identity Not on file Sexual Orientation Not on file Obstetrics History Last Filed Vital Signs Vital Sign Reading Time Taken Comments Blood Pressure 120/48 02/24/2024 9:29 AM EST Pulse 74 02/24/2024 9:29 AM EST Temperature 36.6 ??C (97.8 ??F) 02/24/2024 9:29 AM ES T Respiratory Rate - - Oxygen Saturation 98% 02/24/2024 9:29 AM EST Inhaled Oxygen Concentration - - Weight 52.4 kg (115 lb 9.6 oz) 02/24/2024 9:29 A M EST Height 157.5 cm (5' 2 ) 02/24/2024 9:29 AM EST Body Mass Index 21.14 02/24/2024 9:29 AM EST Plan of Treatment Upcoming Encounters Date Type Department Care Team (Late st Contact Info) Description 06/23/2024 10:45 AM EST Office Visit Internal Medicine - [place] [address] [facility] [address] [place] [address] Kashif Hemphill, JOSELITO [address] [facility] [address] [place] [address] Health Maintenance Due Date Last Done Comments Meningococcal ACWY Vaccine (1 - Risk 2-dose series) 1952 MMR Vaccines (1 of 2 - Risk 2-dose series) 1968 Hepatitis B Vaccines (2 of 3 - Risk 3-dose series) 05/21/2004 04/23/2004 Hepatitis A Vaccines (2 of 2 - Risk 2-dose series) 10/21/2004 04/23/2004 RSV Immunization Patients 60+ Years Old (1 - Risk 60-74 years 1-dose series) 2010 Depression Screening 03/24/2022 Falls Risk Assessment 03/24/2022 Hepatitis C Screening 03/24/2022 Medicare Annual Wellness Visit 03/24/2022 Social Influencers of Health Screening 03/24/2022 Hypertension/CHF/CAD Annual BMP Blood Test 06/05/2023 09/29/2021 Breast Cancer Screening 12/17/2024 12/18/19 23, 12/13/2021, 12/08/2020, Additional history exists Cholesterol Screening (Lipid Panel) 05/24/2028 05/24/2023 Osteoporosis Screening (Bone Density Screening) 12/08/2030 12/08/2020 Colorectal Cancer Screening: Colonoscopy 03/03/2031 03/03/2021 DTaP,Tdap,and Td Vaccines (3 - Td or Tdap) 05/23/2032 05/23/2022, 09/18/2011 Pneumococcal Vaccine: 50+ Years Completed 05/23/2022, 02/09/2020, 08/24/2015, Additional history exists Zoster Vaccines Completed 07/25/2022, 05/23/2022 COVID-19 Vaccine Completed 01/24/2024, 03/2022, 09/16/2021, Additional history exists Influenza Vaccine Completed 01/24/2024, , 03/10/2022, Additional history exists HIB Vaccines Aged Out No longer eligi ble based on patient's age to complete this topic HPV Vaccines Aged Out No longer eligi ble based on patient's age to complete this topic IPV Vaccines Aged Out No longer eligi ble based on patient's age to complete this topic Meningococcal B Vacine Aged Out No lo nger eligible based on patient's age to complete this topic RSV Immunization Patients Under 20 months Aged Out No longer eligible based on patient's age to complete this topic Varicella Vaccines Aged Out No longer eligible based on patient's age to complete this topic Procedures Procedure Name Priority Date/Time Associated Diagnosis Comments LIPID PANEL Routine 05/24/2023 [facility] SCREENING DIGITAL Routine 12/17/2022 5:22 PM EDT Encounter for screening mammogram for malignant neoplasm of breast ANNUAL BMP BLOOD TEST Routine 09/29/2021 COLONOSCOPY Routine 03/03/2021 [facility] DEXA AXIAL SKELETON Routine 12/08/2020 10:37 AM EDT Encounter for screening for osteoporosis from Last 3 Months or Most Recently Relevant to Health Maintenance Results * Lipid panel (05/24/2023) LDL/HDL Ratio 2 0 - 4 Triglycerides 99 0 - 150 mg/dL Cholesterol 192 0 - 200 mg/dL HDL 82 >=40 mg/dL LDL Cholesterol 91 0 - 100 mg/dL Blood Venous blood specimen / Unknown Historical Provider MD LAB BLOOD ORDERABLES Adrienne l Result * [facility] SCREENING DIGITAL (12/17/2022 5:22 PM EDT) Anatomical Region Laterality Modality Mammography 12/17/2022 10:5 1 AM EDT Narrative 12/17/2022 5:22 PM EDT [facility] Diagnostic Imaging Department [address] [place] [address] Patient: ??MI PARIS ?/Age/Sex: 1950 72 - F Unit#: ??[id number] ? Location/Status: ??SPDIMAM/REG CLI ? Mnemonic/Ordering Site: ??DIGSC/SPMAM Ordering Physician: ??KEISHA WAY MD [facility] Screening Digital - 12/17/22 - 1109 Report Status:Signed EXAM: [facility] Screening Digital EXAM DATE AND TIME: 12/17/2022 11:10 AM HISTORY: ??Screening. COMPARISON: ??12/13/21, 12/08/20, 12/25/18 TECHNIQUE: Bilateral digital breast tomosynthesis was performed in the CC and MLO projections. Computer aided detection with Kindful 3D 3.1 was employed. TISSUE DENSITY: b. There are scattered areas of fibroglandular density. FINDINGS: No suspicious masses, grouped microcalcifications, or areas of architectural distortion are seen. The skin and vascularity are unremarkable. IMPRESSION: Stable mammographic appearance of the breasts. ??No evidence of malignancy is seen. A negative mammogram in the presence of a clinically suspicious palpable abnormality does not preclude the possibility of malignancy or alter the indications for biopsy. BI-RADS: ??Category 1: Negative RECOMMENDATION(S): 1: Routine screening mammogram BILATERAL in 1 year. Dictating Physician: ??BEV MILLS MD Electronically Signed by: ??BEV MILLS MD Dic Date/Time: ??12/17/221720 Sign date/Time: ??12/17/221721 Procedure Note Bev Mills MD - 05/28/2023 [facility] Diagnostic Imaging Department [address] [place] [id number] Patient: MI PARIS /Age/Sex: 1950 - 72 - F Unit#: [id number] [facility]ing [facility] Ordering Physician: KEISHA WAY MD [facility] Screening Digital - 12/17/22 - 1109 Report Status:Signed EXAM: [facility] Screening Digital EXAM DATE AND TIME: 12/17/2022 11:10 AM HISTORY: Screening. COMPARISON: 12/13/21, 12/08/20, 12/25/18 TECHNIQUE: Bilateral digital breast tomosynthesis was performed in the CCand MLO projections. Computer aided detection with Kindful 3D 3.1was employed. TISSUE DENSITY: b. There are scattered areas of fibroglandular density. FINDINGS: No suspicious masses, grouped microcalcifications, or areas ofarchitectural distortion are seen. The skin and vascularity are unremarkable. IMPRESSION: Stable mammographic appearance of the breasts. No evidence of malignancyis seen. A negative mammogram in the presence of a clinically suspicious palpable abnormality does not preclude the possibility of malignancy or alter the indications for biopsy. BI-RADS: Category 1: Negative RECOMMENDATION(S): 1: Routine screening mammogram BILATERAL in 1 year. Dictating Physician: BEV MILLS MD Electronically Signed by: BEV MILLS MD Dic Date/Time: 12/17/221720 Sign date/Time: 12/17/2217[address] MD IMG BI PROCEDURES Final Result * Annual BMP Blood Test (09/29/2021) Pathologist [facility] Annual BMP Blood Test abstracted Historical Provider HEALTH MAINTENANCE Final Result * Colonoscopy (03/03/2021) [facility] Colonoscopy abstracted, no interpretation Anatomical Region Laterality Modality Other Historical Provider HEALTH MAINTENANCE Final Result * [facility] DEXA AXIAL SKELETON (12/08/2020 10:37 AM EDT) Anatomical Region Laterality Modality Mammography 12/08/2020 8:27 AM EDT Narrative 12/08/2020 10:37 AM EDT [facility] Diagnostic Imaging Department [address] [place], [place] [id number] Patient: ??MI PARIS ?/Age/Sex: 1950 - - Unit#: ??[id number] ? Location/Status: ??SPDIMAM/REG CLI ? Mnemonic/Ordering Site: ??MAMDEXAAX/SPMAM Ordering Physician: ??KEISHA WAY MD [facility] Dexa Axial Skeleton - 12/08/20929 HISTORY: ??The patient is a 70-year-old postmenopausal female with clinical concern for metabolic bone disease. FINDINGS: ??Dual energy x-ray absorptiometry of the lumbar spine and femurs is performed. The mean bone mineral density at L1-L4 is 0.902 gm/cm2 which is 77% of that of young normals and 97% of that of age matched controls. This yields a T-score of -2.2 and a Z-score of -0.2 which is diagnostic of osteopenia. The mean bone mineral density of the femurs bilaterally is 0.873 gm/cm2 which is 87% of that of young normals and 110% of that of age matched controls. ??This yields a T-score of -1.1 and a Z-score of 0.6 which is diagnostic of osteopenia. The T-score of the right femoral neck is -2.1 and that of the left femoral neck is -1.9 which is diagnostic of osteopenia. IMPRESSION: 1. Osteopenia. 2. FRAX analysis yields a 10-year probability of major osteoporotic fracture of 17.7% and a 10-year probability of hip fracture of 3.8%. Code 73266 Dictating Physician: ??RICARDO SOUTH MD Electronically Signed by: ??RICARDO SOUTH MD Dic Date/Time: ??12/08/20 1036 Sign date/Time: ??12/08/20 1037 Procedure Note Ricardo South MD - 04/18/2022 [facility] Diagnostic Imaging Department [address] [place] [id number] Patient: MI PARIS /Age/Sex: 1950 - 70 - F Unit#: [id number] [facility] Ordering Physician: KEISHA WAY MD [facility] Dexa Axial Skeleton - 12/08/20929 HISTORY: The patient is a 70-year-old postmenopausal female withclinical concern for metabolic bone disease. FINDINGS: Dual energy x-ray absorptiometry of the lumbar spine and femursis performed. The mean bone mineral density at L1-L4 is 0.902 gm/cm2 which is77% of that of young normals and 97% of that of age matched controls. Thisyields a T-score of -2.2 and a Z-score of -0.2 which is diagnostic of osteopenia. The mean bone mineral density of the femurs bilaterally is 0.873 gm/wm5bxxco is 87% of that of young normals and 110% of that of age matched controls.This yields a T-score of -1.1 and a Z-score of 0.6 which is diagnostic ofosteopenia. The T-score of the right femoral neck is -2.1 and that of the left femoralneck is -1.9 which is diagnostic of osteopenia. IMPRESSION: 1. Osteopenia. 2. FRAX analysis yields a 10-year probability of major osteoporoticfracture of 17.7% and a 10-year probability of hip fracture of 3.8%. 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
--- OUTSIDE RECORDS SUMMARY | 2024-06-04 10:16 | XMS_ITS | Clinical Summary ---
Author Organization [facility] Address [address] [place] [phone] Phone Care Team Providers Care Furnace Maintenance Name Role Phone Keisha Way MD Primary Care Provider [phone] Allergies Active Allergy Reactions Criticality Noted Date Comments Oxycodone-Acetaminophen 01/07/2023 Other reaction(s): unknown Medications abacavir (ZIAGEN) 300 MG tablet Take 1 tablet by mouth 2 (two) times a day Active alendronate (FOSAMAX) 70 MG tablet Take 1 tablet by mouth 1 (one) time per week Active atorvastatin (LIPITOR) 10 MG tablet Take 1 tablet by mouth 1 (one) time each day Active lamiVUDine (EPIVIR) 150 MG tablet Take 1 tablet by mouth 1 (one) time each day Active levothyroxine (SYNTHROID, LEVOTHROID) 50 MCG tablet Take 1 tablet by mouth 1 (one) time each day Active baclofen (LIORESAL) 10 MG tablet TAKE 1 TO 2 TABLETS BY MOUTH EVERY NIGHT AT BEDTIME NEEDED FOR NECK PAIN OR HEADACHE 1 Active Tivicay 50 MG tablet Take 50 mg by mouth 1 (one) time each day 1 Active MAGnesium-Oxide 400 (241.3 Mg) MG tablet Take 1 tablet by mouth at night if needed 1 Active Restasis 0.05 % ophthalmic emulsion USE 1 DROP INTO BOTH EYES TWICE DAILY 1 Active Riboflavin (Vitamin B-2) 100 MG tablet Take 2 tablets by mouth 2 (two) times a day 1 Active Calcium Carb-Cholecalci ferol (Calcium-Vitami n D3) 600-200 MG-UNIT tablet Take 1 tablet by mouth 2 (two) times a day 1 Active triamcinolone (KENALOG) 0.025 % cream Apply topically 2 (two) times a day Active Diclofenac Sodium 1 % gel APPLY 1 DOSE TOPICALLY TWICE DAILY 3 Active Active Problems Problem Noted Date Diagnosed Date Chronic kidney disease, stage 2 (mild) 2 Hypertensive chronic kidney disease 01/01/2022 Hypertensive chronic kidney disease stage 3 12/22 Acute nontraumatic kidney injury 09/14/2020 Stage 3b chronic kidney disease 09/14/2020 Human immunodeficiency virus infection Renal colic 09/14/2020 Renal stone 09/14/2020 Vitamin D deficiency 09/14/2020 Immunizations Name Administration Dates Next Due Pneumococcal Polysaccharide 08/24/2015 Family History Relation Status Comments Father Mother Social History Tobacco Use Types Packs/Day Years Used Date Smoking Tobacco: Never Smokeless Tobacco: Never Tobacco Cessation:Counseling Given: Not Answered Alcohol Use Standard Drinks/Week Comments No 0 (1 standard drink = 0.6 oz pur e alcohol) Comments Unknown Sex and Gender Information Value Date Recorded Sex Assigned at Not on file Legal Sex Female 4:42 PM EST Gender Identity Not on file Sexual Orientation Not on file Last Filed Vital Signs Vital Sign Reading Time Taken Comments Blood Pressure 116/62 02/14/2024 9:22 AM EDT Pulse 74 02/14/2024 9:22 AM EDT Temperature - - Respiratory Rate - - Oxygen Saturation 98% 01/07/2023 1:07 PM EDT Inhaled Oxygen Concentration - - Weight 54.1 kg (119 lb 3.2 oz) 02/14/2024 9:22 A M EDT Height 152.4 cm (5') 01/16/2021 8:55 AM EDT Body Mass Index 23.28 01/16/2021 8:55 AM EDT Plan of Treatment Upcoming Encounters Date Type Department Care Team (Late st Contact Info) Description 02/22/2025 1:00 PM EST Office Visit [facility] [address] [phone] William Whipple MD [address] [phone] Health Maintenance Due Date Last Done Comments Breast Cancer Screening 1950 Colorectal Cancer Screening: Annual FOBT 08/08/1999 Colorectal Cancer Screening: Colonoscopy 08/08/1999 Colorectal Cancer Screening: Sigmoidoscopy 08/08/1999 Hepatitis B Vaccine (1 of 3 - Risk 3-dose series) 2010 04/23/2004 Influenza Vaccine (#1) 2023 01/19/2019, 2018 Pneumococcal Vaccine: 65+ Years Completed 02/09/2020, 08/24/2015, 08/05/2013, Additional history exists Insurance * Guarantor: [employer] Account Type Relation to Patient Date of Phone Billing Address Personal/Family Self [address] ([id number]) [facility] ([id number]) Care Teams Furnace Maintenance Relationship Specialty Start Date End Date Keisha Way MD [address] [place] [phone] PCP - General 05/02/20
== END 2024-06-04 10:51 | disposition home or self-care (01) ==
PROVIDERS: PCP Internal Medicine; Visit Provider Physician Assistant Medical
DX: R26.89 Other abnormalities of gait and mobility (principal); M54.2 Cervicalgia; H81.92 Unspecified disorder of vestibular function, left ear; G24.3 Spasmodic torticollis; G44.021 Chronic cluster headache, intractable; G93.0 Cerebral cysts; Q04.9 Congenital malformation of brain, unspecified
CPT/HCPCS: 99214

== ENCOUNTER → 2024-06-04 09:47 | Outpatient (BNVA) | payer OTHER, SELFPAY | PROVIDERS: PCP Internal Medicine; Visit Provider Physician Assistant Medical | DX: R26.89 Other abnormalities of gait and mobility (principal); M54.2 Cervicalgia; H81.92 Unspecified disorder of vestibular function, left ear; G24.3 Spasmodic torticollis; G44.021 Chronic cluster headache, intractable; G93.0 Cerebral cysts; Q04.9 Congenital malformation of brain, unspecified | CPT/HCPCS: 99212 ==

== ENCOUNTER 2024-09-15 09:12 | Outpatient (AMB) | payer OTHER, SELFPAY ==
--- NOTE | 2024-09-15 09:18 | MHC.OFFVIS ---
Vital Signs 09/15/24 09:19 Height 5 ft 2 in Weight 110 lb 6 oz BMI 20.2 BP 120/70 Blood Pressure Location Lt brachial Position Sitting Pulse 68 Pulse Source Pulse Oximeter Pulse Oximetry (%) 98 Oxygen Delivery Method Room Air Intake Visit Reasons: 3mon follow-up Intake Note: Patient presents follow up migraine medication. Butter Melter Required: Yes Butter Melter Language: Icelandic Butter Melter Services: Butter Melter Present Butter Melter Name: Danae [id number] Information Interpreted: non-clinical & clinical Allergies No Known Allergies Allergy (Verified 09/15/24 09:26) HPI Comments Details: 74-yr-old female presents for f/u visit, of stable dandy walker cyst. 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 MRI Apr 2024 was similar to old MRI and Stable Dandy Walker Cyst. She had a fall, 2months ago and slipped on icy snow but did not hit her head. She can have a quick right occipital focal pain when she turns her head to the right. She has 3-5 headaches a week, which last 5 - 10 minutes. Her head feels heavy and worse in the mornings for about 1-3 hours. The pain radiates occipitally to the trapezius, with a pressure, she stretches the SCM and trapezius with a twist to the left side and it goes away for 2-3 min. She denies vertigo, dizziness, gait imbalance. She does not use a cane. She is independent in all ADLS, can dress herself, cook, clean and lives alone. She denies photophobia, phonophobia with flashes of light, and or auras. She is taking both muscle relaxers and we reviewed SE of each medication today, Tizanidine and Cyclobenzaprine, and she may take the medication every other night as needed for pain. We also discussed using a heating pad for her neck pain, tiger balm or bengay topically as needed. We also discussed taking B2 as it helps with reduction in inflammation of nerves and migraines. Her memory, mood, diet and sleep are okay at baseline with medications she sleeps better. She is compliant w/ Mag, now will start B2, and Baclofen, or Tizanidine PRN pain. She had labs recently at [facility] PCP Dr. Keisha Way. [facility] Medical History Kidney disease Hypothyroidism Osteoporosis HLD (hyperlipidemia) HIV (human immunodeficiency virus infection) Surgical History Hx of cataract surgery Social History Alcohol intake: never Patient Tobacco Use Status: Never used Tobacco Physical Exam Vital Signs: Last Vital Signs Pulse 68 09/15/24 09:19 BP 120/70 09/15/24 09:19 Pulse Ox 98 09/15/24 09:19 Oxygen Delivery Method Room Air 09/15/24 09:19 BMI result Body Mass Index 20.2 Const Other: she has lost 5 pounds since last visit General: cooperative and no acute distress Nutritional Appearance: thin Orientation/consciousness: patient oriented x3 HEENT Face and sinus: Yes face symmetric Eyes Pupils: Equal, round and reactive pupils present Resp Effort & Inspection: normal respiratory effort and able to speak in complete sentences Neuro General: patient oriented x3 and moves all extremities Cranial nerves: Yes Equal, round and reactive pupils present, Yes Normal accommodation reflex present, Yes Normal facial strength present, Yes Midline tongue present, Yes Ability to bilaterally rotate head present (with limited ROM bilaterally) and Yes Ability to bilaterally elevate shoulders present Gait exam (Neuro): Wide-based gait present Motor exam (neuro): Abnormal motor strength present (4/5) bilateral upper extremity and Abnormal muscle tone present Deep tendon reflexes (DTR's): Right triceps reflex intensity grade: 2+ Coordination: [id number] test normal, tandem gait normal and does not sway with eyes open Psych Speech and movement: Normal speech and movement present Affect: normal affect 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: Code(s): H81.90 - Unspecified disorder of vestibular function, unspecified ear Category: Medical Qualifiers: Laterality: left Qualified Code(s): H81.92 - Unspecified disorder of vestibular function, left ear (4) Spasmodic torticollis: Code(s): G24.3 - Spasmodic torticollis Category: Medical (5) Headache: Code(s): R51.9 - Headache, unspecified Category: Medical Qualifiers: Headache chronicity pattern: chronic headache Headache type: cluster Intractability: intractable Qualified Code(s): G44.021 - Chronic cluster headache, intractable (6) Arachnoid cyst: Comment: retrocerebellar arachnoid cyst and Dandy-Walker spectrum anatomy. 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 Code(s): Q04.9 - Congenital malformation of brain, unspecified Category: Medical (8) Headache: Code(s): R51.9 - Headache, unspecified Category: Medical Qualifiers: Headache chronicity pattern: chronic headache Headache type: cluster Intractability: intractable Qualified Code(s): G44.021 - Chronic cluster headache, intractable Plan Reviewed brain MRI results stable arachnoid cyst. MRI May 15, 2024, will f/u with MRI in Apr 2025 or sooner if symptoms indicate imagining. IMPRESSION: Jan 2023: posterior fossa arachnoid cyst measuring approx 7.4 x 9.4 x 9.0 cm in oblique AP, transverse and craniocaudal dimensions) in the posterior fossa, with mass effect on the cerebellar structures. 05/06/2018, [facility], Brain MRI w/o: Retrocerebellar 5 x 8 x 8 cm arachnoid cyst versus giant cisterna magna. 01/29/12, [facility], Brain MRI w/o: posterior fossa arachnoid cyst measuring 9 cm craniocaudally, 5.8 cm anterior posteriorly, 9.5 cm medial laterally.w/ expansion of the posteriorfossa, remodeling of the calvarium and mild mass effect on the cerebellar structures. Spasmodic Torticollis 06/04/2024 Difficulty with rotation of the neck, ROM is limited to the L>R. Would like to try Botox in the future declines ?Cervicalgia and Migraines Sumatriptan Trial for the onset of headaches take 50mg PO, may take one additional tablet 2 hours after the first dose. Do not exceed more than 2 tablets with in 24 hours for a total of 100mg PO daily. PT prefers to do home PT exercises per direction, for myofascial release, craniosacral tx. Pt is homebound- pt needs assist, dizziness, headache, does not drive, language barrier and requires assistance to safely leave her home. Pt will need information mailed to her in Icelandic. Riboflavin 400 mg q.a.m. Magnesium 400mg qhs. Stopped gabapentin 100mg- caused sleepiness. Tizanidine 400mg PO daily, may skip a day if she feels too sedated and can cut pill in half as needed, she may rotate the medications, skip a day of Baclofen and take Tizanidine instead, depending on what works best for her and the pain level. Try increasing Baclofen from 10mg qhs to 10mg bid or 20mg qhs- for cervicalgia/headache. Previous headache trials: Amitriptyline- not tolerated. ? EMG Bilateral legs numbness and pain. (Patient did not complete due to language barrier) will try again. f/u in 4 months Patient Instructions: Sleep Hygiene provided: set a scheduled bedtime and wake time to help regulate the circadian rhythm and balance the release of pituitary hormones. Sleep in a dark room, temperatures below 68 degrees, and no devices n bed. Limit caffeinated products 6 hours prior to bed, and limit fluids 2-4 hours prior to bed. Gentle night yoga, diffusing essential oils, and playing soft music can be relaxing. Coding Level of Care Code Est Pt Level 4 (77520) Diagnoses Balance disorder R26.89 Cervicalgia M54.2 Balance problem due to vestibular dysfunction of left ear H81.92 Laterality: left Spasmodic torticollis G24.3 Intractable chronic cluster headache G44.021 Headache chronicity pattern: chronic headache Headache type: cluster Intractability: intractable Arachnoid cyst G93.0 Congenital malformation of brain Q04.9 Time Spent (min) 25
[2024-09-15 09:19] VITALS: BP 120/70; PULSE 68; O2SAT 98; BMI 20.2
--- OUTSIDE RECORDS SUMMARY | 2024-09-15 09:45 | XMS_ITS | Clinical Summary ---
Author Organization [address] [facility] Address [address] [place] [address] Phone Care Team Providers Care Phone Screener Name Role Phone Keisha Way MD Primary Care Provider [phone] Allergies No known active allergies Medications calcium [...] mouth 2 (two) times a day. Active lidocaine 4 % patch Apply 1 [...] at bedtime. 30 patch 5 4 Active tiZANidine (ZANAFLEX) 4 mg tabletIndication [...] 4 Active triamcinolone (KENALOG) 0.1 % cream APPLY TOPICALLY TO THE AFFECTED AREA 1 TO 2 TIMES DAILY NEEDED. AVOID FACE AND GROIN 30 g 1 5 Active mupirocin (BACTROBAN) 2 % ointmentIndicati ons:Eczema, unspecified type Apply 1 Application topically 2 (two) times a day. 60 g 3 5 Active levothyroxine (SYNTHROID, LEVOTHROID) 50 mcg tablet Take 1 tablet (50 mcg total) by mouth 1 (one) time each day. 90 tablet 3 5 Active Active Problems Problem Noted Date Diagnosed Date Primary hypertension 05/22/2023 Nephrolithiasis 04/08/2018 Overview (01/15/2024): S/p lithotripsy; 10/2013 h/o Stent Tubular adenoma of colon 04/08/2018 Overview (01/15/2024): S/p resection HIV (human immunodeficiency virus infection) ([facility] V24, [facility] V28) 11/20/2017 Overview (01/15/2024): On HAART Hyperlipidemia 07/31/2017 Hypothyroidism 07/31/2017 Constipation 09/26/2016 Osteoporosis 04/08/2013 Chronic sinusitis 10/16/2012 Carpal tunnel syndrome 10/15/2012 Insomnia 10/15/2012 Encounters Date Type Department Care Team Description 08/04/2024 Telephone Internal Medicine - [address] [phone] Jackelin Knight MA Form ([facility]) 07/02/2024 8:30 AM EDT Office Visit Internal Medicine [address] [place] [phone] Kashif Hemphill NP Primary hypertension (Primary Dx); Hypothyroidism, unspecified type; Currently asymptomatic HIV infection, with history of HIV-related illness ([facility] V24, [facility] V28); Osteoporosis, unspecified osteoporosis type, unspecified pathological fracture presence; Hyperlipidemia, unspecified hyperlipidemia type; Chronic back pain, unspecified back location, unspecified back pain laterality; Eczema, unspecified type; Cirrhosis of liver without ascites, unspecified hepatic cirrhosis type ([facility] V24, [facility] V28) from Last 3 Months Immunizations Name Administration Dates Next Due Hep A, Unspecified 04/23/2004 Hepatitis B (Tncaeve-A-Tdyvl , Recombivax HB-Adult) 19yo and older 04/23/2004 [...] 09/26/2016 DX:Constipation HIV (human immunodeficiency virus infection) ([facility] V24, [facility] V28) 11/20/2017 DX:HIV (human im munodeficiency virus infection) (HCC); COMMENT: On HAART Hyperlipidemia [...] Sign Reading Time Taken Comments Blood Pressure 102/60 07/02/2024 8:30 AM EDT Pulse 75 07/02/2024 8:30 AM EDT Temperature 36.7 ??C (98 ??F) 07/02/2024 8:30 AM EDT Respiratory Rate - - Oxygen Saturation 99% 07/02/2024 8:30 AM EDT Inhaled Oxygen Concentration - - Weight 50.1 kg (110 lb 6.4 oz) 07/02/2024 8:30 A M EDT Height 157.5 cm (5' 2 ) 07/02/2024 8:30 AM EDT Body Mass Index 20.19 07/02/2024 8:30 AM EDT Plan of Treatment Upcoming Encounters Date Type Department Care Team (Late st Contact Info) Description 11/19/2024 9:00 AM EDT Office Visit Internal Medicine - [place] [address] [facility] [address] [place] [address] MD [address] [facility] [address] [place] [phone] Health Maintenance Due Date Last Done Comments Meningococcal ACWY Vaccine (1 - Risk 2-dose series) 1952 MMR Vaccines (1 of 2 - Risk 2-dose series) 1968 Hepatitis B Vaccines (2 of 3 - Risk 3-dose series) 05/21/2004 04/23/2004 Hepatitis A Vaccines (2 of 2 - Risk 2-dose series) 10/21/2004 04/23/2004 RSV Immunization Adult Patients (1 - Risk 60-74 years 1-dose series) 2010 Depression Screening 03/24/2022 Falls Risk Assessment 03/24/2022 Hepatitis C Screening 03/24/2022 Social Influencers of Health Screening 03/24/2022 Hypertension/CHF/CAD Annual BMP Blood Test 06/05/2023 09/29/2021 COVID-19 Vaccine (7 - Pfizer risk season) 2024 01/24/2024, 03/03/2022, 09/16/2021, Additional history exists Breast Cancer Screening 12/17/2024 12/18/19, 12/13/2021, 12/08/2020, Additional history exists Cholesterol Screening (Lipid Panel) 05/24/2028 05/24/2023 Osteoporosis Screening (Bone Density Screening) 12/08/2030 12/08/2020 Colorectal Cancer Screening: Colonoscopy 03/03/2031 03/03/2021 DTaP,Tdap,and Td Vaccines (3 - Td or Tdap) 05/23/2032 05/23/2022, 09/18/2011 Pneumococcal Vaccine: 50+ Years Completed 05/23/2022, 02/09/2020, 08/24/2015, Additional history exists Zoster Vaccines Completed 07/25/2022, 05/23/2022 Influenza Vaccine Completed 01/24/2024, , 03/10/2022, Additional history exists HIB Vaccines Aged Out No longer eligi ble based on patient's age to complete this topic HPV Vaccines Aged Out No longer eligi ble based on patient's age to complete this topic IPV Vaccines Aged Out No longer eligi ble based on patient's age to complete this topic Meningococcal B Vaccine Aged Out No l onger eligible based on patient's age to complete this topic RSV Immunization Patients Under 20 months Aged Out No longer eligible based on patient's age to complete this topic Varicella Vaccines Aged Out No longer eligible based on patient's age to complete this topic Procedures Procedure Name Priority Date/Time Associated Diagnosis Comments LIPID PANEL Routine 05/24/2023 [facility] SCREENING DIGITAL Routine 12/17/2022 5:22 PM EDT Encounter for screening mammogram for malignant neoplasm of breast ANNUAL BMP BLOOD TEST Routine 09/29/2021 COLONOSCOPY Routine 03/03/2021 [facility] DEXA AXIAL SKELETON Routine 12/08/2020 10:37 AM [...] mg/dL Blood Venous blood specimen / Unknown us Historical Provider LAB BLOOD ORDERABLES Adrienne l Result * [facility] SCREENING DIGITAL (12/17/2022 5:22 PM EDT) Anatomical Region Laterality Modality Mammography 12/17/2022 10:5 1 AM EDT Narrative 12/17/2022 5:22 PM EDT [facility] Diagnostic Imaging Department [address] [place], [place] [address] Patient: ??MI PARIS ?/Age/Sex: 1950 - 72 - F Unit#: ??[id number] ? Location/Status: ??SPDIMAM/REG CLI ? Mnemonic/Ordering Site: ??DIGSC/SPMAM Ordering Physician: ??KEISHA WAY MD [facility] Screening Digital - 12/17/22 - 1109 Report Status:Signed EXAM: [facility] Screening Digital EXAM DATE AND TIME: 12/17/2022 11:10 AM HISTORY: ??Screening. COMPARISON: ??12/13/21, 12/08/20, 12/25/18 TECHNIQUE: Bilateral digital breast tomosynthesis was performed in the CC and MLO projections. Computer aided detection with [employer] 3D 3.1 was employed. TISSUE DENSITY: b. [...] Signed by: ??BEV MILLS MD Dic Date/Time: ??12/17/22 172 Sign date/Time: ??12/17/22 172 Procedure Note Bev Mills MD - 05/28/2023 [facility] Diagnostic Imaging Department [address] [place] [id number] Patient: PARISMIO.B./Age/Sex: 1950 - 72 - F Unit#: [id number] Location/Status: [facility]/REG CLI Mnemonic/Ordering Site: [facility] Ordering Physician: KEISHA WAY MD [facility] Screening Digital - 12/17/22 - 1109 Report Status:Signed EXAM: [facility] Screening Digital EXAM DATE AND TIME: 12/17/2022 11:10 AM HISTORY: Screening. COMPARISON: 12/13/21, 12/08/20, 12/25/18 TECHNIQUE: Bilateral digital breast tomosynthesis was performed in the CCand MLO projections. Computer aided detection with [employer] 3D 3.1was employed. TISSUE DENSITY: b. There [...] Result * Annual BMP Blood Test (09/29/2021) Annual BMP Blood Test abstracted Historical Provider HEALTH MAINTENANCE Final Result * Colonoscopy (03/03/2021) Colonoscopy abstracted, no interpretation Anatomical Region Laterality Modality Other Historical Provider HEALTH MAINTENANCE Final Result * [facility] DEXA AXIAL SKELETON (12/08/2020 10:37 AM EDT) Anatomical Region Laterality Modality Mammography 12/08/2020 8:27 AM EDT Narrative 12/08/2020 10:[facility] [address] [place] [id number] Patient: ??MI PARIS ?/Age/Sex: 1950 Unit#: ??[id number] ? Location/Status: ??SPDIMAM/REG CLI ? Mnemonic/Ordering Site: [...] probability of hip fracture of 3.8%. Code 35687 Dictating Physician: ??RICARDO SOUTH MD Electronically Signed by: ??RICARDO SOUTH MD Dic Date/Time: ??12/08/20 1036 Sign date/Time: ??12/08/20 1037 Procedure Note Ricardo South MD - 04/18/2022 [facility] Diagnostic Imaging Department [address] [place], [place] [address] Patient: MI PARIS./Age/Sex: 1950 - 70 - F Unit#: [id number] [facility]ing Site[facility] Ordering Physician: KEISHA AWY MD [facility] Dexa Axial Skeleton - 12/08/20929 HISTORY: The [...] density of the femurs bilaterally is 0.873 gm/[id number] is 87% of that of young normals [...] probability of hip fracture of 3.8%. Code 58632 Dictating Physician: RICARDO SOUTH MD Electronically Signed by: RICARDO SOUTH MD Dic Date/Time: 12/08/20 1036 Sign date/Time: 12/08/[address] MD IMG BI PROCEDURES Final Result from Last 3 Months or Most Recently Relevant to Health Maintenance Insurance [facility] Member Subscriber Plan / Payer (Ef fective 2015-Present) Name:Mi Paris Relation to Subscriber:Self Name:Mi Paris Payer ID:[id number] Group ID:[id number] Type:Not on file Address: [address] [facility] [place] [address] Care Teams Phone Screener Relationship Specialty Start Date End Date Keisha Way MD [address] [facility] [address] [place] [address] PCP - General Internal Medicine 06/10/12
== END 2024-09-15 10:10 | disposition home or self-care (01) ==
LOC: HO.HSMS 09:13
PROVIDERS: PCP Internal Medicine; Visit Provider Physician Assistant Medical
DX: R26.89 Other abnormalities of gait and mobility (principal); M54.2 Cervicalgia; H81.92 Unspecified disorder of vestibular function, left ear; G24.3 Spasmodic torticollis; G44.021 Chronic cluster headache, intractable; G93.0 Cerebral cysts; Q04.9 Congenital malformation of brain, unspecified
CPT/HCPCS: 99214

== ENCOUNTER → 2024-09-15 09:12 | Outpatient (BNVA) | payer OTHER, SELFPAY | PROVIDERS: PCP Internal Medicine; Visit Provider Physician Assistant Medical | DX: R26.89 Other abnormalities of gait and mobility (principal); M54.2 Cervicalgia; H81.92 Unspecified disorder of vestibular function, left ear; G44.021 Chronic cluster headache, intractable; G24.3 Spasmodic torticollis; G93.0 Cerebral cysts; Q04.9 Congenital malformation of brain, unspecified | CPT/HCPCS: 99212 ==

== ENCOUNTER 2025-01-18 10:45 | Outpatient (AMB) | payer OTHER, SELFPAY ==
--- OUTSIDE RECORDS SUMMARY | 2025-01-13 07:52 | XMS_ITS | Encounter Summary ---
Author Organization [facility] Address [address] [place] [address] Care Team Providers Care Local Company Truck Driver Name Role Phone Keisha Way MD Primary Care Provider [phone] Reason for Referral * Imaging (Routine) - Closed Specialty Diagnoses / Procedures Referred By Contac t Referred To Contact Radiology Diagnoses Menopausal state Procedures BD Bone Density DXA Axial Skeleton Keisha Way MD [address] [address] Phone: tel: fax: [address] [address] Phone: tel: Referral ID Status Reason Start Date Expiration Date Visits Re quested Visits Authorized [id number] Closed 11/19/2024 11/19/2025 1 1 Reason for Visit * Imaging (Routine) - Closed Specialty Diagnoses / Procedures Referred By Contac t Referred To Contact Radiology Diagnoses Menopausal state Procedures BD Bone Density DXA Axial Skeleton Keisha Way MD [address] [address] Phone: tel: fax: [address] [phone] Phone: tel: Referral ID Status Reason Start Date Expiration Date Visits Re quested Visits Authorized [id number] Closed 11/19/2024 11/19/2025 1 1 Encounter Details Date Type Department Care Team (Latest Contact Info) Description 01/13/2025 7:52 AM EDT - 01/13/2025 11:59 PM EDT Hospital Encounter [facility] Bone Density [address] [place] [address] Menopausal state Discharge Disposition: Home or Self Care Social History Tobacco Use Types Packs/Day Years Used Date Smoking Tobacco: Never Smokeless Tobacco: Never Alcohol Use Standard Drinks/Week Comments No 0 (1 standard drink = 0.6 oz pur e alcohol) Comments No Sex and Gender Information Value Date Recorded Sex Assigned at Not on file Legal Sex Female 8:11 PM EST Gender Identity Not on file Sexual Orientation Not on file documented as of this encounter Medications at Time of Discharge abacavir (ZIAGEN) 300 mg tablet Take 1 tablet (300 mg total) by mouth 2 (two) times a day. alendronate (FOSAMAX) 70 mg tablet TAKE 1 TABLET BY MOUTH EVERY 7 DAYS 12 tablet 2 12/14/2024 amLODIPine (NORVASC) 5 mg tablet TAKE 1 TABLET BY MOUTH DAILY 90 tablet 1 04/20/2024 atorvastatin (LIPITOR) 10 mg tablet TAKE 1 TABLET BY MOUTH DAILY 90 tablet 2 12/14/2024 baclofen (LIORESAL) 10 mg tablet Take 1 Tablet by mouth 3 times daily. calcium carbonate (CALCIUM ORAL) Calcium Carb-Cholecalcif bernice 600-5 MG-MCG Tab 07/19/2022 calcium carbonate-vitamin D3 600 mg-5 mcg (200 unit) per tablet Take 1 tablet by mouth 2 (two) times a day. 07/08/2021 camphor-methyl salicyl-menthoL (Salonpas) 3.1 %-10 %-6 % (large) adhesive patch,medicatedInd ications:Chronic back pain, unspecified back location, unspecified back pain laterality,Right shoulder pain, unspecified chronicity Apply 1 patch topically 1 (one) time each day if needed (pain). Remove at bedtime. 30 patch 5 02/24/2024 clotrimazole-betam ethasone (LOTRISONE) 1-0.05 % cream Apply topically 2 (two) times a day. 30 g 1 11/19/2024 cyanocobalamin (VITAMIN B-12) 1,000 mcg tablet Take 500 mcg by mouth daily. cyclobenzaprine (FLEXERIL) 10 mg tablet Take 1 Tablet by mouth 3 times daily as needed. 3 times a day for 3 days cycloSPORINE (RESTASIS) 0.05 % ophthalmic emulsion apply 1 Drop to the eye daily. diclofenac (VOLTAREN) 1 % topical gel Apply 2 g topically 2 (two) times a day. 100 g 1 03/30/2024 dolutegravir (TIVICAY) 50 mg tablet Take by mouth. gabapentin (NEURONTIN) 100 mg capsule Take 2 Capsules by mouth at bedtime. 05/09/2023 guaiFENesin (MUCINEX) 600 mg 12 hr tablet Take 1 tablet (600 mg total) by mouth 2 (two) times a day. 05/22/2023 lamiVUDine (EPIVIR) 150 mg tablet Take 1 tablet (150 mg total) by mouth 2 (two) times a day. levothyroxine (SYNTHROID, LEVOTHROID) 50 mcg tablet Take 1 tablet (50 mcg total) by mouth 1 (one) time each day. 90 tablet 3 07/25/2024 lidocaine (LIDODERM) 5 % patchIndications:C hronic back pain, unspecified back location, unspecified back pain laterality,Osteopo rosis, unspecified osteoporosis type, unspecified pathological fracture presence Apply topically 1 (one) time each day. Remove & discard patch within 12 hours or as directed by . 30 each 2 11/13/2024 lidocaine 4 % patch Apply 1 Patch topically every 12 hours. 05/22/2023 magnesium oxide (MAG-OX) 400 mg (241.3 elemental magnesium) tablet Magnesium Oxide -Mg Supplement 400 (240 Mg) MG Tab 04/20/2023 magnesium oxide (MAG-OX) 400 mg (241.3 elemental magnesium) tablet Take 400 mg by mouth daily. mupirocin (BACTROBAN) 2 % ointmentIndication s:Eczema, unspecified type Apply 1 Application topically 2 (two) times a day. 60 g 3 07/02/2024 naproxen (EC NAPROSYN) 500 mg EC tabletIndications: osteoarthritis,siva n Take 1 tablet (500 mg total) by mouth 2 (two) times a day if needed for mild pain. Do not crush, chew, or split. Take with food. 60 tablet 11 02/24/2024 predniSONE (DELTASONE) 20 mg tablet 3 tab for 3 days,2 tab for 3 days,1 tab for 3 days 05/30/2023 riboflavin (VITAMIN B2) 100 mg tablet Take 1 capsule by mouth 1 (one) time each day. tiZANidine (ZANAFLEX) 4 mg tabletIndications: Chronic back pain, unspecified back location, unspecified back pain laterality,Right shoulder pain, unspecified chronicity Take 1 tablet (4 mg total) by mouth at bedtime as needed for muscle spasms. 30 tablet 3 02/24/2024 triamcinolone (KENALOG) 0.1 % cream APPLY TOPICALLY TO THE AFFECTED AREA 1 TO 2 TIMES DAILY NEEDED. AVOID FACE AND GROIN 30 g 1 06/29/2024 trospium (SANCTURA) 20 mg tablet Take 1 tablet (20 mg total) by mouth 1 (one) time each day. 05/14/2023 documented as of this encounter Discharge Disposition Disposition Code Departure Means Destination Home or Self Care documented in this encounter Plan of Treatment Upcoming Encounters Date Type Department Care Team (Late st Contact Info) Description 05/24/2025 8:15 AM EST Office Visit Internal Medicine - [place] [address] [facility] [address] [place] [address] MD 175 [facility] [address] [place] [address] documented as of this encounter Procedures Procedure Name Priority Date/Time Associated Diagnosis Comments BD BONE DENSITY DXA AXIAL SKELETON Routine 01/13/2025 8:17 AM EDT Menopausal state documented in this encounter Results * BD Bone Density DXA Axial Skeleton (01/13/2025 8:17 AM EDT) Anatomical Region Laterality Modality Wrist, Hip, L-spine Bone Densito metry 01/13/2025 8:34 AM EDT Impressions 01/13/2025 8:35 AM EDT 1. Osteopenia. There has been a decrease of 1.1% in bone mineral density in the lumbar spine since the prior examination of 12/08/2020. There has been a decrease of 6.9% in bone mineral density in the right femur and a decrease of 4.7% in bone mineral density in the left femur. 2. FRAX analysis yields a 10-year probability of major osteoporotic fracture of 11.8% and a 10-year probability of hip fracture of 3.4%. Code 59376 -------- FINAL REPORT -------- Dictated By: Cipriano South Dictated Date: 01/13/2025 08:34 ET Assigned Physician: Cipriano South Reviewed and Electronically Signed By: Cipriano South Signed Date: 01/13/2025 08:35 ET Workstation ID: [id number] Transcribed By: Self Edit Transcribed Date: 01/13/2025 08:34 ET Narrative 01/13/2025 8:35 AM EDT HISTORY: The patient is a 74-year-old postmenopausal female with clinical concern for metabolic bone disease. FINDINGS: Dual energy x-ray absorptiometry of the lumbar spine and femurs is performed. The mean bone mineral density at L1-2 is 0.892 gm/cm2 which is 77% of that of young normals and 99% of that of age matched controls. This yields a T-score of -2.3 and a Z-score of -0.1 which is diagnostic of osteopenia. The mean bone mineral density of the femurs bilaterally is 0.823 gm/cm2 which is 82% of that of young normals and 109% of that of age matched controls. This yields a T-score of -1.5 and a Z-score of 0.6 which is diagnostic of osteopenia. The T-score of the right femoral neck is -2.3 and that of the left femoral neck is -2.2 which is diagnostic of osteopenia. Procedure Note Cipriano South MD - 01/13/2025 HISTORY: The patient is a 74-year-old postmenopausal female with clinicalconcern for metabolic bone disease. FINDINGS: Dual energy x-ray absorptiometry of the lumbar spine and femursis performed. The mean bone mineral density at L1-2 is 0.892 gm/cm2 whichis 77% of that of young normals and 99% of that of age matched controls.This yields a T-score of -2.3 and a Z-score of -0.1 which is diagnostic ofosteopenia. The mean bone mineral density of the femurs bilaterally is 0.823 gm/ka8yimhj is 82% of that of young normals and 109% of that of age matchedcontrols. This yields a T-score of -1.5 and a Z-score of 0.6 which isdiagnostic of osteopenia. The T- score of the right femoral neck is -2.3and that of the left femoral neck is -2.2 which is diagnostic ofosteopenia. IMPRESSION: 1. Osteopenia. There has been a decrease of 1.1% in bone mineral densityin the lumbar spine since the prior examination of 12/08/2020. There hasbeen a decrease of 6.9% in bone mineral density in the right femur and adecrease of 4.7% in bone mineral density in the left femur. 2. FRAX analysis yields a 10-year probability of major osteoporoticfracture of 11.8% and a 10-year probability of hip fracture of 3.4%. Code 88661 -------- FINAL REPORT -------- Dictated By: Cipriano South Dictated Date: 01/13/2025 08:34 ET Assigned Physician: Cipriano South Reviewed and Electronically Signed By: Cipriano South Signed Date: 01/13/2025 08:35 ET Workstation ID: [id number] Transcribed By: Self Edit Transcribed Date: 01/13/2025 08:[address] MD IM DXA PROCEDURES Final Resul t documented in this encounter Visit Diagnoses Diagnosis Menopausal state Symptomatic menopausal or female climacteric states documented in this encounter Care Teams Local Company Truck Driver Relationship Specialty Start Date End Date Keisha Way MD [address] [place] [address] PCP - General Internal Medicine 06/10/12 documented as of this encounter
--- OUTSIDE RECORDS SUMMARY | 2025-01-13 07:53 | XMS_ITS | Encounter Summary ---
Author Organization [facility] Address [address] [place] [address] Care Team Providers Care Treatment Manager Name Role Phone Keisha Way MD Primary Care Provider [phone] Reason for Visit * Imaging (Routine) - Closed Specialty Diagnoses / Procedures Referred By Contac t Referred To Contact Radiology Diagnoses Breast cancer screening by mammogram Procedures MG Mammo Digital Screening w Dimitri bilat MG Mammo Digital Screening bilat Keisha Way MD [address] [place] [address] Phone: tel: fax: [address] [address] Phone: tel: Referral ID Status Reason Start Date Expiration Date Visits Re quested Visits Authorized [id number] Closed 11/19/2024 11/19/2025 1 1 Encounter Details Date Type Department Care Team (Latest Contact Info) Description 01/13/2025 7:53 AM EDT - 01/13/2025 11:59 PM EDT Hospital [facility] [address] [address] Breast cancer screening by mammogram Discharge Disposition: Home or Self Care Social [...] on file documented as of this encounter Last Filed Vital Signs Vital Sign Reading Time Taken Comments Blood Pressure - - Pulse - - Temperature - - Respiratory Rate - - Oxygen Saturation - - Inhaled Oxygen Concentration - - Weight 50.8 kg (112 lb) 01/13/2025 8:23 AM EDT Height 160 cm (5' 3 ) 01/13/2025 8:23 AM EDT Body Mass Index 19.84 01/13/2025 8:23 AM EDT documented in this encounter Medications at Time of Discharge [...] within 12 hours or as directed by MD. 30 each 2 11/13/2024 lidocaine 4 % [...] Upcoming Encounters Date Type Department Care Team ([facility] st Contact Info) Description 05/24/2025 8:15 AM EST Office Visit Internal Medicine - [place] 175 [facility] [address] [place] [phone] MD 175 [facility] [address] [place] [phone] documented as of this encounter Procedures Procedure Name Priority Date/Time Associated Diagnosis Comments MG MAMMO DIGITAL SCREENING W DIMITRI BILAT Routine 01/13/2025 8:34 AM EDT Breast cancer screening by mammogram documented in this encounter Results * MG Mammo Digital Screening w Dimitri bilat (01/13/2025 8:34 AM EDT) Anatomical Region Laterality Modality Breast Bilateral Mammography 01/13/2025 9:03 AM EDT Impressions 01/13/2025 9:11 AM EDT No mammographic evidence of malignancy. No suspicious interval change. A negative mammogram in the presence of a clinically suspicious palpable abnormality does not preclude the possibility of malignancy or alter the indications for biopsy. ASSESSMENT: BI-RADS 1: NEGATIVE RECOMMENDATION(S): 1: Routine screening mammogram BILATERAL in 1 year. Mammography location: [facility] [address] [place], [address] -------- FINAL REPORT -------- Dictated By: Abel Ellington Dictated Date: 01/13/2025 09:03 ET Assigned Physician: Abel Ellington Reviewed and Electronically Signed By: Abel Ellington Signed Date: 01/13/2025 09:11 ET Workstation ID: [id number] Transcribed By: Self Edit Transcribed Date: 01/13/2025 09:03 ET Narrative 01/13/2025 9:11 AM EDT EXAM: SCREENING MAMMOGRAPHY, BILATERAL HISTORY: SCREENING. No additional history. COMPARISON: 12/17/22, 12/13/21, 12/08/20 TECHNIQUE: Synthesized CC and MLO projections of each breast. Tomosynthesis of each breast in the CC and MLO projections. ADDITIONAL IMAGING: None Computer-aided detection was employed with the [employer] AI 3-D. TISSUE DENSITY: There are scattered areas of fibroglandular density. (BI-RADS category B) FINDINGS: RIGHT BREAST: No suspicious mass. No suspicious calcification. No distortion. No additional suspicious right breast findings LEFT BREAST: No suspicious mass. No suspicious calcification. No distortion. No additional suspicious left breast findings Procedure Note Abel Ellington MD - 01/13/2025 EXAM: SCREENING MAMMOGRAPHY, BILATERAL HISTORY: SCREENING. No additional history. COMPARISON: 12/17/22, 12/13/21, 12/08/20 TECHNIQUE: Synthesized CC and MLO projections of each breast.Tomosynthesis of each breast in the CC and MLO projections. ADDITIONAL IMAGING: None Computer-aided detection was employed with the [employer] AI 3-D. TISSUE DENSITY: There are scattered areas of fibroglandular density.(BI-RADS category B) FINDINGS: RIGHT BREAST: No suspicious mass. No suspicious calcification. No distortion. Noadditional suspicious right breast findings LEFT BREAST: No suspicious mass. No suspicious calcification. No distortion. Noadditional suspicious left breast findings IMPRESSION: No mammographic evidence of malignancy. No suspicious interval change. A negative mammogram in the presence of a clinically suspicious palpableabnormality does not preclude the possibility of malignancy or alter theindications for biopsy. ASSESSMENT: BI-RADS 1: NEGATIVE RECOMMENDATION(S): 1: Routine screening mammogram BILATERAL in 1 year. Mammography location: [facility] [address] [place], [address] -------- FINAL REPORT -------- Dictated By: Abel Ellington Dictated Date: 01/13/2025 09:03 ET Assigned Physician: Abel Ellington Reviewed and Electronically Signed By: Abel Ellington Signed Date: 01/13/2025 09:11 ET Workstation ID: [id number] Transcribed By: Self Edit Transcribed Date: 01/13/2025 09:[address] MD IMG BI PROCEDURES Final Result documented in this encounter Visit Diagnoses Diagnosis Breast cancer screening by mammogram documented in this encounter Care Teams Treatment Manager Relationship Specialty Start Date End Date Keisha Way MD [address] [address] PCP - General Internal Medicine 06/10/12 documented as of this encounter
[2025-01-18 10:53] VITALS: BP 120/60; PULSE 69; O2SAT 98; BMI 20.2
--- NOTE | 2025-01-18 10:53 | A.OFFVIS_ITS ---
Vital Signs 01/18/25 10:53 Height 5 ft 2 in Weight 110 lb 8 oz BMI 20.2 BP 120/60 Blood Pressure Location Rt brachial Position Sitting Pulse 69 Pulse Source Pulse Oximeter Pulse Oximetry (%) 98 Oxygen Delivery Method Room Air Intake Visit Reasons: 4 mo follow up Intake Note: Patient presents follow up Balance/Headache. Patient states when walking to fast gets a little dizzy. Headaches under control. [employer] Collar Baster Required: Yes [employer] Collar Baster Language: Latvian [employer] B[employer] Services: [employer]lar Baster Present Jumpb[employer] Collar Baster Name: Kyle [id number] Information Interpreted: non-clinical & clinical Accompanied by: Self / Same As Patient Allergies No Known Allergies Allergy (Verified 01/18/25 11:00) HPI Comments Details: 74-yr-old female presents for a f/u visit, of stable dandy walker cyst and chronic migraines. Vietnames speaking hourly sign language interpreter on IPAD. MRI Apr 2024 was similar to old MRI and Stable Dandy Walker Cyst. She denies any recent falls and has quick right occipital focal pain when she turns her head to the right. She has 3-5 headaches a week, with dizziness which last 5 - 10 minutes. Her head feels heavy with pressure through the day. The pain radiates occipitally to the trapezius, she stretches the SCM and trapezius with a twist to the left side and it goes away for 2-3 min. She has gait and balance instability with weakness, pain radiating from lower back into l. side. of the hip and leg. She denies photophobia, phonophobia, scotomas, floaters, flashes of light, and or auras. She lives alone independently and is able to complete all ADLS. She is taking both muscle relaxers Tizanidine and Cyclobenzaprine, and sometimes will adjunct with Baclofen if unable to sleep due to pain. She applies Salanpas anti- inflammatory patches every other night prn pain. Her memory, mood, diet and sleep are okay at baseline and with medications she sleeps better. She is compliant w/ Mag, now will start B2. [facility] Medical History Kidney disease Hypothyroidism Osteoporosis HLD (hyperlipidemia) HIV (human immunodeficiency virus infection) Surgical History Hx of cataract surgery Social History Alcohol intake: never Patient Tobacco Use Status: Never used Tobacco Physical Exam Vital Signs: Last Vital Signs Pulse 69 01/18/25 10:53 BP 120/60 01/18/25 10:53 Pulse Ox 98 01/18/25 10:53 Oxygen Delivery Method Room Air 01/18/25 10:53 BMI result Body Mass Index 20.2 Const General: cooperative, no acute distress and tired appearing Nutritional Appearance: thin Orientation/consciousness: patient oriented x3 HEENT Face and sinus: Yes face symmetric Eyes Pupils: Equal, round and reactive pupils present Neck Other: pain with lateral ROM bilaterally Resp Effort & Inspection: normal respiratory effort and able to speak in complete sentences Neuro General: patient oriented x3 and moves all extremities Cranial nerves: Yes Equal, round and reactive pupils present, Yes Normal accommodation reflex present, Yes Normal facial strength present, Yes Midline tongue present, Yes Ability to bilaterally rotate head present (with limited ROM bilaterally) and Yes Ability to bilaterally elevate shoulders present Gait exam (Neuro): Wide-based gait present and Other gait observations present (refuses to use a cane) Motor exam (neuro): Abnormal motor strength present (4/5) and Abnormal muscle tone present Deep tendon reflexes (DTR's): Right triceps reflex intensity grade: 2+ Coordination: somwpr-qu-[id number] test normal, tandem gait normal and does not sway with eyes open Psych Speech and movement: Normal speech and movement present Affect: normal affect Insight: Good insight present (Psych) Results Reviewed Results Reviewed: MR/MR head/brain wo/w con IMPRESSION: Overall stable since prior examination. Consider a large arachnoid cyst versus pseudomeningocele, posterior cranial fossa. 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 - Spasmodic torticollis Category: Medical (2) Balance disorder: Code(s): R26.89 - Other abnormalities of gait and mobility Category: Medical (3) Cervicalgia: Code(s): M54.2 - Cervicalgia Category: Medical (4) Balance problem due to vestibular dysfunction: Code(s): H81.90 - Unspecified disorder of vestibular function, unspecified ear Category: Medical Qualifiers: Laterality: left Qualified Code(s): H81.92 - Unspecified disorder of vestibular function, left ear (5) Headache: Code(s): R51.9 - Headache, unspecified Category: Medical Qualifiers: Headache chronicity pattern: chronic headache Headache type: cluster Intractability: intractable Qualified Code(s): G44.021 - Chronic cluster headache, intractable (6) Arachnoid cyst: Comment: retrocerebellar arachnoid cyst and Dandy-Walker spectrum anatomy. 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 Code(s): Q04.9 - Congenital malformation of brain, unspecified Category: Medical (8) Headache: Code(s): R51.9 - Headache, unspecified Category: Medical Qualifiers: Headache chronicity pattern: chronic headache Headache type: cluster Intractability: intractable Qualified Code(s): G44.021 - Chronic cluster headache, intractable Plan Cervicalgia Spasmodic Torticollis 06/04/2024 Tizanidine 4mg po qprn pain Cyclobenzaprine 10mg po qpm Baclofen 10mg po BID Tizanidine 4mg po daily, may skip a day if she feels sedated and can cut pill in half as needed, she may rotate the medications, skip a day of Baclofen and take Tizanidine 4mg po instead, depending on efficacy. Cyclobenzaprine 10mg po prn for pain and muscle spasm. Past Chronic Migraines Medications Sumatriptan for the onset of headaches take 50mg PO, may take one additional tablet 2 hours after the first dose. Do not exceed more than 2 tablets with in 24 hours for a total of 100mg PO daily. Amitriptyline 10mg po daily not well tolerated. Supplements for chronic migraines and spasms, and OTC therapies for pain Salanpas patches otc. Riboflavin 200 mg q.a.m. Magnesium 400mg qhs. Balance and Gait difficulties PT prefers to do home PT exercises per direction on her own, for myofascial release, and craniosacral tx. PT homebound pt needs assist, dizziness, headache, vertigo, does not drive, language barrier and requires assistance. Pt.Declines EMG Bilateral legs numbness and pain. pt declined HST pt declined f/u in 4 months Medications: Changed From cyclobenzaprine 10 mg PO TID G24.3 - Spasmodic torticollis To cyclobenzaprine 10 mg PO TID 3 months 270 tabs 0RF MDD 10mg G24.3 - Spasmodic torticollis From cyclobenzaprine 10 mg PO TID 3 months 270 tabs 0RF MDD 10mg G24.3 - Spasmodic torticollis To cyclobenzaprine May take one tablet prn pain at bedtime. 10 mg PO BEDTIME PRN 30 tabs 2RF muscle spasm 3 months MDD 10mg G24.3 - Spasmodic torticollis Refilled tizanidine 4 mg PO BEDTIME 30 tabs 2RF Cervicaliga MDD 4mg M54.2 - Cervicalgia magnesium oxide 400 mg PO DAILY 30 tabs 6RF 30 days riboflavin (vitamin B2) (Vitamin B-2) 200 mg (2 x 100 mg) PO BID 120 tabs 6RF 30 days Patient Instructions: Sleep Hygiene provided: set a scheduled bedtime and wake time to help regulate the circadian rhythm and balance the release of pituitary hormones. Sleep in a dark room, temperatures below 68 degrees, and no devices n bed. Limit caffeinated products 6 hours prior to bed, and limit fluids 2-4 hours prior to bed. Gentle night yoga, diffusing essential oils, and playing soft music can be relaxing. Continue to do PT at home for balance and gait instability. Use a cane if you continue to feel instability of gait. Sleep 6-8 hours a night. Drink plenty of water and staying hydrated can help with reduction of headaches and muscle spasms. May take Cyclobenzaprine 10mg po for insomnia or sleep disturbances. Baclofen and Tizanidine for Muscle spasms and cervicalgai. Coding Level of Care Code Est Pt Level 4 (51032) Diagnoses Spasmodic torticollis G24.3 Balance disorder R26.89 Cervicalgia M54.2 Balance problem due to vestibular dysfunction of left ear H81.92 Laterality: left Intractable chronic cluster headache G44.021 Headache chronicity pattern: chronic headache Headache type: cluster Intractability: intractable Arachnoid cyst G93.0 Congenital malformation of brain Q04.9
--- OUTSIDE RECORDS SUMMARY | 2025-01-18 12:17 | XMS_ITS | Clinical Summary ---
Author Organization [facility] Address [address] [place] [address] Phone Care Team Providers Care Security Operations Center Analyst Name Role Phone Keisha Way MD Primary Care Provider [phone] Allergies No known active allergies Medications calcium [...] Patch topically every 12 hours. 4 Active magnesium oxide (MAG-OX) 400 mg (241.3 [...] with food. 60 tablet 11 4 Active diclofenac (VOLTAREN) 1 % topical gel Apply 2 g topically 2 (two) times a day. 100 g 1 4 Active amLODIPine (NORVASC) 5 mg tablet [...] each day. 90 tablet 3 5 Active lidocaine (LIDODERM) 5 % patchIndications :Chronic back pain, unspecified back location, unspecified back pain laterality,Osteo porosis, unspecified osteoporosis type, unspecified pathological fracture presence Apply topically 1 (one) time each day. Remove & discard patch within 12 hours or as directed by MD. 30 each 2 5 Active clotrimazole-bet amethasone (LOTRISONE) 1-0.05 % cream Apply topically 2 (two) times a day. 30 g 1 5 Active atorvastatin (LIPITOR) 10 mg tablet TAKE 1 TABLET BY MOUTH DAILY 90 tablet 2 5 Active alendronate (FOSAMAX) 70 mg tablet TAKE 1 TABLET BY MOUTH EVERY 7 DAYS 12 tablet 2 5 Active Active Problems Problem Noted Date Diagnosed Date Primary hypertension 05/22/2023 Hypertensive chronic kidney disease 01/16/2021 Vitamin D deficiency 09/14/2020 Nephrolithiasis 04/08/2018 Overview (01/15/2024): S/p lithotripsy; 10/2013 h/o Stent Tubular adenoma of colon 04/08/2018 Overview (01/15/2024): S/p resection HIV (human immunodeficiency virus infection) ([facility] V24, [facility] V28) 11/20/2017 Overview (01/15/2024): On HAART Hyperlipidemia 07/31/2017 Hypothyroidism 07/31/2017 Constipation 09/26/2016 Osteoporosis 04/08/2013 Chronic sinusitis 10/16/2012 Carpal tunnel syndrome 10/15/2012 Insomnia 10/15/2012 Encounters Date Type Department Care Team Description 01/13/2025 7:53 AM EDT - 01/13/2025 11:59 PM EDT [facility] [address] [place] [address] Breast cancer screening by mammogram Discharge Disposition: Home or Self Care 01/13/2025 7:52 AM EDT - 01/13/2025 11:59 PM EDT Hospital Encounter [facility] Bone Density [address] [place] [address] Menopausal state Discharge Disposition: Home or Self Care 11/25/2024 Telephone Internal Medicine - [facility] [address] [place] [address] Irene Aviles MA 11/20/2024 Telephone Internal Medicine - [place] [facility] [address] [place] [phone] Dylan Mohamud MA 11/19/2024 9:00 AM EDT Office Visit Internal Medicine [facility] [address] [place] [phone] MD Adult general medical examination (Primary Dx); Currently asymptomatic HIV infection, with history of HIV-related illness (CMS/HCC V24, CMS/HCC V28); Hyperlipidemia, unspecified hyperlipidemia type; Hypothyroidism, unspecified type; Breast cancer screening by mammogram; Menopausal state 11/13/2024 Telephone Internal Medicine [facility] [address] [place] [phone] MD from Last 3 Months Immunizations Immunization Administration Dates Next Due Hep A, Unspecified 04/23/2004 Hepatitis B (Xetdagu-J-Pwogr , Recombivax HB-Adult) 19yo and older 04/23/2004 [...] 09/26/2016 DX:Constipation HIV (human immunodeficiency virus infection) (CMS/HCC V24, CMS/HCC V28) 11/20/2017 DX:HIV (human im munodeficiency virus infection) ([facility]); COMMENT: On HAART Hyperlipidemia 07/31/2017 DX:Hyperlipidemi a [...] Sexual Orientation Not on file Obstetrics History Para Term AB IAB SAB Ectopic Multiple Livin g Live Births 0 Last Filed Vital Signs Vital Sign Reading Time Taken Comments Blood Pressure 110/58 11/19/2024 8:39 AM EDT Pulse 74 11/19/2024 8:39 AM EDT Temperature 36.6 C (97.9 F) 11/19/2024 8:39 AM EDT Respiratory Rate 18 11/19/2024 8:39 AM EDT Oxygen Saturation 97% 11/19/2024 8:39 AM EDT Inhaled Oxygen Concentration - - Weight 50.8 kg (112 lb) 01/13/2025 8:23 AM EDT Height 160 cm (5' 3 ) 01/13/2025 8:23 AM EDT Body Mass Index 19.84 01/13/2025 8:23 AM EDT Plan of Treatment Upcoming Encounters Date Type Department Care Team (Late st Contact Info) Description 05/24/2025 8:15 AM EST Office Visit Internal Medicine - [place] 175 [facility] [address] [place] [address] MD 175 [facility] [address] [place] [address] Health Maintenance Due Date Last Done Comments Meningococcal ACWY Vaccine (1 - Risk 2-dose series) 1952 MMR Vaccines (1 of 2 - Risk 2-dose series) 1968 Hepatitis B Vaccines (2 of 3 - Risk 3-dose series) 05/21/2004 04/23/2004 Hepatitis A Vaccines (2 of 2 - Risk 2-dose series) 10/21/2004 04/23/2004 RSV Immunization Adult Patients (1 - Risk 60-74 years 1-dose series) 2010 Falls Risk Assessment 03/24/2022 Hepatitis C Screening 03/24/2022 Social Influencers of Health Screening 03/24/2022 Depression Screening 04/22/2024 COVID-19 Vaccine (7 - Pfizer risk season) 2024 01/24/2024, 03/03/2022, 09/16/2021, Additional history exists Hypertension/CHF/CAD Annual BMP Blood Test 11/19/2025 11/19/2024, 09/29/2021 Breast Cancer Screening 01/13/2027 01/14/20 25, 12/17/2022, 12/13/2021, Additional history exists Cholesterol Screening (Lipid Panel) 05/24/2028 05/24/2023 Colorectal Cancer Screening: Colonoscopy 03/03/2031 03/03/2021, 2016 DTaP,Tdap,and Td Vaccines (3 - Td or Tdap) 05/23/2032 05/23/2022, 09/18/2011 Osteoporosis Screening (Bone Density Screening) 01/13/2035 01/13/2025, 12/08/2020 Pneumococcal Vaccine: 50+ Years Completed 05/23/2022, 02/09/2020, 08/24/2015, Additional history exists Zoster Vaccines Completed 07/25/2022, 05/23/2022 Influenza Vaccine Completed 12/26/2024, , 01/15/2023, Additional history exists HIB Vaccines Aged Out [...] AM EDT Breast cancer screening by mammogram BD BONE DENSITY DXA AXIAL SKELETON Routine 01/13/2025 8:17 AM EDT Menopausal state CBC WITH AUTO DIFFERENTIAL Routine 11/19/2024 9:34 AM EDT Currently asymptomatic HIV infection, with history of HIV-related illness ([facility]/HCC V24, [facility] V28) Hyperlipidemia, unspecified hyperlipidemia type Hypothyroidism, unspecified type THYROID STIMULATING HORMONE Routine 11/19/2024 9:34 AM EDT Currently asymptomatic HIV infection, with history of HIV-related illness ([facility]/HCC V24, CMS/[facility] V28) Hyperlipidemia, unspecified hyperlipidemia type Hypothyroidism, unspecified type COMPREHENSIVE METABOLIC PANEL Routine 11/19/2024 9:34 AM EDT Currently asymptomatic HIV infection, with history of HIV-related illness ([facility]/HCC V24, CMS/HCC V28) Hyperlipidemia, unspecified hyperlipidemia type Hypothyroidism, unspecified type CBC AND DIFFERENTIAL Routine 11/19/2024 9:34 AM EDT Currently asymptomatic HIV infection, with history of HIV-related illness (CMS/[facility] V24, [facility] V28) Hyperlipidemia, unspecified hyperlipidemia type Hypothyroidism, unspecified type LIPID PANEL Routine 05/24/2023 HM COLONOSCOPY Routine 03/03/2021 from Last 3 Months or Most Recently Relevant to Health Maintenance Results * MG Mammo Digital Screening w [...] year. [facility]amm[facility] location[facility] [address], [address] -------- FINAL REPORT -------- Dictated By: Abel Ellington Dictated Date: 01/13/2025 09:03 ET Assigned Physician: Abel Ellington Reviewed and Electronically Signed By: Abel Ellington Signed Date: 01/13/2025 09:11 ET Workstation ID: [id number] Transcribed By: Self Edit Transcribed Date: 01/13/2025 09:03 ET Narrative 01/13/2025 9:11 AM EDT EXAM: SCREENING MAMMOGRAPHY, BILATERAL HISTORY: SCREENING. No additional history. COMPARISON: 12/17/22, 12/13/21, 12/08/20 TECHNIQUE: Synthesized CC and MLO projections of each breast. Tomosynthesis of each breast in the CC and MLO projections. ADDITIONAL IMAGING: None Computer-aided detection was employed with the iCAD [employer] AI 3-D. TISSUE DENSITY: There are scattered [...] None Computer-aided detection was employed with the iCAD [employer] AI 3-D. TISSUE DENSITY: There are scattered [...] year. Mamm[facility] location: [facility] at [address], [address] -------- FINAL REPORT -------- Dictated By: Abel Ellington Dictated Date: 01/13/2025 09:03 ET Assigned Physician: Abel Ellington Reviewed and Electronically Signed By: Abel Ellington Signed Date: 01/13/2025 09:11 ET Workstation ID: [id number] Transcribed By: Self Edit Transcribed Date: 01/13/2025 09:[address] MD IMG BI PROCEDURES Final Result * BD Bone Density DXA Axial Skeleton [...] probability of hip fracture of 3.4%. Code 24749 -------- FINAL REPORT -------- Dictated By: Cipriano South Dictated Date: 01/13/2025 08:34 ET Assigned Physician: Cipriano South Reviewed and Electronically Signed By: Cipriano South Signed Date: 01/13/2025 08:35 ET Workstation ID: [id number] Transcribed By: Self Edit Transcribed Date: 01/13/2025 [...] density of the femurs bilaterally is 0.823 gm/uk1aghvp is 82% of that of young normals [...] probability of hip fracture of 3.4%. Code 28778 -------- FINAL REPORT -------- Dictated By: Cipriano South Dictated Date: 01/13/2025 08:34 ET Assigned Physician: Cipriano South Reviewed and Electronically Signed By: Cipriano South Signed Date: 01/13/2025 08:35 ET Workstation ID: [id number] Transcribed By: Self Edit Transcribed Date: 01/13/2025 08:[address] MD IM DXA PROCEDURES Final Resul t * (ABNORMAL) CBC auto differential (11/19/2024 9:34 AM EDT) WBC 4.5(L) 4.8 - 10.8 K/[facility] HEMETOLOGY METHOD 11/19/2024 2:30 PM EDT [facility] RBC 3.60(L) 3.80 - 4.80 M/[facility] LAB HEMETOLOGY METHOD 11/19/2024 2:30 PM EDT [facility] Hemoglobin 12.1 11.5 - 16.0 g/dL LAB HEMETOLOGY METHOD 11/19/2024 2:30 PM EDT [facility] Hematocrit 38.3 35.0 - 47.0 % LAB HEMETOLOGY METHOD 11/19/2024 2:30 PM EDT [facility] MCV 106.4(H) 79.0 - 98.0 FL LAB HEMETOLOGY METHOD 11/19/2024 2:30 PM EDT [facility] MCH 33.6(H) 27.0 - 32.0 pcg LAB HEMETOLOGY METHOD 11/19/2024 2:30 PM EDT [facility] MCHC 31.6(L) 32.0 - 37.0 g/dL LAB HEMETOLOGY METHOD 11/19/2024 2:30 PM EDT [facility] RDW 12.0 11.0 - 15.0 % LAB HEMETOLOGY METHOD 11/19/2024 2:30 PM EDT [facility] Platelets 176 130 - 400 K/mcL LAB HEMETOLOGY [facility] MPV 9.4 7.0 - 11.0 FL LAB HEMETOLOGY METHOD 11/19/2024 2:30 PM EDT [facility] NRBC 0.0 <1.0 % LAB HEMETOLOGY METHOD 11/19/2024 2:30 PM EDT [facility] NRBC Absolute 0.00 <0.10 K/mcL LAB HEMETOLOGY METHOD [facility] Neutrophils Relative 56.6 % LAB HEMETOLOGY METHOD 11/19/2024 2:30 PM EDT [facility] Lymphocytes Relative 30.2 % LAB HEMETOLOGY METHOD 11/19/2024 2:30 PM EDT [facility] Monocytes Relative 8.8 % LAB HEMETOLOGY METHOD 11/19/2024 2:30 PM EDT [facility] Eosinophils Relative 3.5 % LAB HEMETOLOGY METHOD 11/19/2024 2:30 PM EDT [facility] Basophils Relative 0.7 % LAB HEMETOLOGY METHOD 11/19/2024 2:30 PM EDT [facility] Immature Granulocytes Relative 0.2 % LAB HEMETOLOGY METHOD 11/19/2024 2:30 PM EDT [facility] Neutrophils Absolute 2.56 1.50 - 7.00 K/mcL LAB HEMETOLOGY METHOD 11/19/2024 2:30 PM EDT [facility] Lymphocytes Absolute 1.37 1.00 - 5.00 K/mcL LAB HEMETOLOGY METHOD 11/19/2024 2:30 PM EDT [facility] Monocytes Absolute 0.40 0.20 - 1.00 K/mcL LAB HEMETOLOGY METHOD 11/19/2024 2:30 PM EDT [facility] Eosinophils Absolute 0.16 0.00 - 0.50 K/mcL LAB HEMETOLOGY METHOD 11/19/2024 2:30 PM EDT [facility] Basophils Absolute 0.03 0.00 - 0.20 K/mcL LAB HEMETOLOGY METHOD 11/19/2024 2:30 PM EDT [facility] Immature Granulocytes Absolute 0.01 0.00 - 0.03 K/mcL LAB HEMETOLOGY METHOD 11/19/2024 2:30 PM EDT [facility] Blood Venous blood specimen / Unknown Venipuncture / Unknown 11/19/2024 9:34 AM EDT 11/19/2024 9:34 AM EDT us Keisha Way MD LAB BLOOD ORDERABLES Final Res ult [facility] [address] [place] [address], [place] [phone] * Thyroid stimulating hormone (11/19/2024 9:34 AM EDT) [facility] TSH 2.23 0.40 - 4.00 mcIU/mL LAB CHEMISTRY METHOD 11/19/2024 4:29 PM EDT [facility] Blood Venous blood specimen / Unknown Venipuncture / Unknown 11/19/2024 9:34 AM EDT 11/19/2024 9:34 AM EDT us Keisha Way MD LAB BLOOD ORDERABLES Final Res ult [facility] [address] [place] [address], [place] [phone] * (ABNORMAL) Comprehensive metabolic panel (11/19/2024 9:34 AM EDT) [facility] Sodium 139 133 - 145 mmol/L LAB CHEMISTRY METHOD 11/19/2024 3:19 PM [facility] Potassium 4.1 3.5 - 5.5 mmol/L LAB CHEMISTRY METHOD 11/19/2024 3:19 PM [facility] Chloride 108 96 - 110 mmol/L LAB CHEMISTRY METHOD 11/19/2024 3:19 PM [facility] CO2 28 21 - 32 mmol/L LAB CHEMISTRY METHOD 11/19/2024 3:19 PM [facility] Anion Gap 3 3 - 11 LAB CHEMISTRY METHOD 11/19/2024 3:19 PM [facility] Glucose 98 70 - 100 mg/dL LAB CHEMISTRY METHOD 11/19/2024 3:19 PM [facility] BUN 19 5 - 25 mg/dL LAB CHEMISTRY METHOD 11/19/2024 3:19 PM T [facility] Creatinine 1.06 0.50 - 1.10 mg/dL LAB CHEMISTRY METHOD 11/19/2024 3:19 PM [facility] eGFR 55(L) >=60 mL/min/1. 73m2 LAB CHEMISTRY METHOD 11/19/2024 3:19 PM [facility] Comment:Calculation based on the Chronic Kidney Disease Epidemiology Collaboration (CKD-EPI) equation refit without adjustment for race. BUN/Creatinine Ratio 17.9 LAB CHEMISTRY METHOD 11/19/2024 3:19 PM [facility] Calcium 9.1 8.5 - 10.5 mg/dL LAB CHEMISTRY METHOD 11/19/2024 3:19 PM [facility] AST (SGOT) 26 10 - 42 unit/L LAB CHEMISTRY METHOD 11/19/2024 3:19 PM [facility] ALT (SGPT) 17 10 - 60 unit/L LAB CHEMISTRY METHOD 11/19/2024 3:19 PM [facility] Alkaline Phosphatase 51 42 - 121 unit/L LAB CHEMISTRY METHOD 11/19/2024 3:19 PM [facility] Total Protein 7.2 6.0 - 8.0 g/dL LAB CHEMISTRY METHOD 11/19/2024 3:19 PM [facility] Albumin 3.8 3.2 - 5.0 g/dL LAB CHEMISTRY METHOD 11/19/2024 3:19 PM [facility] Total Bilirubin 0.3 0.0 - 1.4 mg/dL LAB CHEMISTRY METHOD 11/19/2024 3:19 PM [facility] Blood Venous blood specimen / Unknown Venipuncture / Unknown 11/19/2024 9:34 AM EDT 11/19/2024 9:34 AM EDT us Keisha Way MD LAB BLOOD ORDERABLES Final Res ult [facility] [address] [place] [address], [place] [phone] * Lipid panel (05/24/2023) LDL/HDL Ratio 2 0 - 4 Triglycerides 99 0 - 150 mg/dL Cholesterol 192 0 - 200 mg/dL HDL 82 >=40 mg/dL LDL Cholesterol 91 0 - 100 mg/dL Blood Venous blood specimen / Unknown us Historical Provider MD LAB BLOOD ORDERABLES Adrienne l Result * Colonoscopy (03/03/2021) Colonoscopy abstracted, no interpretation Anatomical Region Laterality Modality Other us Historical Provider HEALTH MAINTENANCE Final Result from Last 3 Months or Most Recently Relevant to Health Maintenance Insurance [facility] Member Subscriber Plan / Payer (Ef fective 2015-Present) Name:Chadd Paris Relation to Subscriber:Self Name:Chadd Paris Payer ID:[id number] Group ID:[id number] Type:Not on file Address: [place] [address] [place] [id number] Care Teams Security Operations Center Analyst Relationship Specialty Start Date End Date Keisha Way MD [address] [place] [address] [address] [place] [address] PCP - General Internal Medicine 06/10/12
--- OUTSIDE RECORDS SUMMARY | 2025-01-18 12:17 | XMS_ITS | Clinical Summary ---
Author Organization [facility] Address [address] [place] [phone] Phone Care Team Providers Care Copywriter Name Role Phone Keisha Way MD Primary Care Provider [phone] Allergies Active Allergy Reactions Criticality Noted Date [...] Renal stone 09/14/2020 Vitamin D deficiency 09/14/2020 Encounters Date Type Department Care Team Description 12/21/2024 Orders Only [facility] [address] [address] William Whipple MD Chronic kidney disease, stage 2 (mild); Hypertensive chronic kidney disease from Last 3 Months Immunizations Immunization Administration Dates Next Due Pneumococcal Polysaccharide 08/24/2015 [...] Upcoming Encounters Date Type Department Care Team ([facility] st Contact Info) Description 02/22/2025 1:00 PM EST Office Visit [facility] [address] [address] William Whipple MD [address] [phone] Health Maintenance Due Date Last Done Comments Breast Cancer Screening 1950 Colorectal Cancer Screening: Annual FOBT 08/08/1999 Colorectal Cancer Screening: Colonoscopy 08/08/1999 Colorectal Cancer Screening: Sigmoidoscopy 08/08/1999 Hepatitis B Vaccine (1 of 3 - Risk 3-dose series) 2010 04/23/2004 Influenza Vaccine (#1) 2024 01/19/2019, 2018 Pneumococcal Vaccine: 50+ Years Completed 02/09/2020, 08/24/2015, 08/05/2013, Additional history exists Pneumococcal Vaccine: Peds ( 0 to 5 Years) and At-Risk Patients (6 to 49 Years) Discontinued 02/09/2020, 08/24/2015, 08/05/2013, Additional history exists Insurance ([id number]) [place] [id number] [facility] ([id number]) [place] [id number] Care Teams Copywriter Relationship Specialty Start Date End Date Keisha Way MD [address] [address] PCP - General 05/02/20
--- OUTSIDE RECORDS SUMMARY | 2025-01-18 12:17 | XMS_ITS ---
Author Name [facility] Organization Unknown History of Medication Use Medication Directions Dispensed Refills Start Date End Date Stat clotrimazole-betameth asone (LOTRISONE) 1-0.05 % cream Apply topically 2 (two) times a day. 11/19/2024 active lidocaine (LIDODERM) 5 % patch Apply topically 1 (one) time each day. Remove & discard patch within 12 hours or as directed by MD. 11/13/2024 active levothyroxine (SYNTHROID, LEVOTHROID) 50 mcg tablet Take 1 tablet (50 mcg total) by mouth 1 (one) time each day. 07/25/2024 active mupirocin (BACTROBAN) 2 % ointment Apply 1 Application topically 2 (two) times a day. 07/02/2024 active triamcinolone (KENALOG) 0.1 % cream APPLY TOPICALLY TO THE AFFECTED AREA 1 TO 2 TIMES DAILY NEEDED. AVOID FACE AND GROIN 06/29/2024 active amLODIPine (NORVASC) 5 mg tablet TAKE 1 TABLET BY MOUTH DAILY 04/20/2024 active alendronate (FOSAMAX) 70 mg tablet TAKE 1 TABLET BY MOUTH EVERY 7 DAYS 04/17/2024 12/14/2024 aborted diclofenac (VOLTAREN) 1 % topical gel Apply 2 g topically 2 (two) times a day. 03/30/2024 active atorvastatin (LIPITOR) 10 mg tablet TAKE 1 TABLET BY MOUTH DAILY 03/08/2024 12/14/2024 aborted camphor-methyl salicyl-menthoL (Salonpas) 3.1 %-10 %-6 % (large) adhesive patch,medicated Apply 1 patch topically 1 (one) time each day if needed (pain). Remove at bedtime. 02/24/2024 active naproxen (EC NAPROSYN) 500 mg EC tablet Take 1 tablet (500 mg total) by mouth 2 (two) times a day if needed for mild pain. Do not crush, chew, or split. Take with food. 02/24/2024 active tiZANidine (ZANAFLEX) 4 mg tablet Take 1 tablet (4 mg total) by mouth at bedtime as needed for muscle spasms. 02/24/2024 active predniSONE (DELTASONE) 20 mg tablet 3 tab for 3 days,2 tab for 3 days,1 tab for 3 days 05/30/2023 active guaiFENesin (MUCINEX) 600 mg 12 hr tablet Take 1 tablet (600 mg total) by mouth 2 (two) times a day. 05/22/2023 active lidocaine 4 % patch Apply 1 Patch topically every 12 hours. 05/22/2023 active trospium (SANCTURA) 20 mg tablet Take 1 tablet (20 mg total) by mouth 1 (one) time each day. 05/14/2023 active gabapentin (NEURONTIN) 100 mg capsule Take 2 Capsules by mouth at bedtime. 05/09/2023 active magnesium oxide (MAG-OX) 400 mg (241.3 elemental magnesium) tablet Magnesium Oxide -Mg Supplement 400 (240 Mg) MG Tab 04/20/2023 active calcium carbonate (CALCIUM ORAL) Calcium Carb-Cholecalcife rol 600-5 MG-MCG Tab 07/19/2022 active calcium carbonate-vitamin D3 600 mg-5 mcg (200 unit) per tablet Take 1 tablet by mouth 2 (two) times a day. 07/08/2021 active abacavir (ZIAGEN) 300 mg tablet Take 1 tablet (300 mg total) by mouth 2 (two) times a day. active baclofen (LIORESAL) 10 mg tablet Take 1 Tablet by mouth 3 times daily. active cyanocobalamin (VITAMIN B-12) 1,000 mcg tablet Take 500 mcg by mouth daily. active cyclobenzaprine (FLEXERIL) 10 mg tablet Take 1 Tablet by mouth 3 times daily as needed. 3 times a day for 3 days active cycloSPORINE (RESTASIS) 0.05 % ophthalmic emulsion apply 1 Drop to the eye daily. active dolutegravir (TIVICAY) 50 mg tablet Take by mouth. active lamiVUDine (EPIVIR) 150 mg tablet Take 1 tablet (150 mg total) by mouth 2 (two) times a day. active riboflavin (VITAMIN B2) 100 mg tablet Take 1 capsule by mouth 1 (one) time each day. active Problems Problem Status Onset Date Problem Type Date of Resoluti on Source HIV (human immunodeficiency virus infection) ([facility] V24, [facility] V28) active 2017-11-20 ProblemAct [facility] Chronic sinusitis active 2012-10-16 ProblemAct [facility] Constipation active 2016-09-26 ProblemAct [facility] Hyperlipidemia active 2017-07-31 ProblemAct [facility] Vitamin D deficiency active 2020-09-14 ProblemAct [facility] Carpal tunnel syndrome active 2012-10-15 ProblemAct [facility] Nephrolithiasis active 2018-04-[address] [facility] Insomnia active 2012-10-15 ProblemAct [facility] Hypertensive chronic kidney disease active 2021-01-16 ProblemAct [facility] Hypothyroidism active 2017-07-31 ProblemAct [facility] Osteoporosis active 2013-04-08 ProblemAct [facility] Primary hypertension active 2023-05-22 ProblemAct [facility] Tubular adenoma of colon active 2018-04-08 ProblemAct [facility] Immunizations Vaccine Date Source Lot Number Status Influenza trivalent, 0.5mL ( Fluzone High-dose) 65yo and older 01/02/2019 [facility] [id number] comple jesús Pneumococcal conjugate 13 va lent (Prevnar 13, PCV13) 2mo and older 08/05/2013 [facility] UNK complet ed Tdap Tetanus diptheria acell ular pertussis (Boostrix; Adacel) 7yo and older 09/18/2011 [facility] UNK completed Pneumococcal polysaccharide 23 valent (Pneumovax 23) 2yo and older 03/06/2011 [facility] UNK com pleted Hep A, Unspecified 04/23/2004 [facility] comple jesús Hepatitis B (Dablkmv-J-Zkael , Recombivax HB-Adult) 19yo and older 04/23/2004 [facility] complet ed
== END 2025-01-18 11:41 | disposition home or self-care (01) ==
LOC: HO.HSMS 10:46
PROVIDERS: PCP Internal Medicine; Visit Provider Physician Assistant Medical
DX: G24.3 Spasmodic torticollis (principal); R26.89 Other abnormalities of gait and mobility; M54.2 Cervicalgia; H81.92 Unspecified disorder of vestibular function, left ear; G44.021 Chronic cluster headache, intractable; G93.0 Cerebral cysts; Q04.9 Congenital malformation of brain, unspecified
CPT/HCPCS: 99214

== ENCOUNTER → 2025-01-18 10:45 | Outpatient (BNVA) | payer OTHER, SELFPAY | PROVIDERS: PCP Internal Medicine; Visit Provider Physician Assistant Medical | DX: G24.3 Spasmodic torticollis (principal); M54.2 Cervicalgia; H81.92 Unspecified disorder of vestibular function, left ear; G44.021 Chronic cluster headache, intractable; G93.0 Cerebral cysts; Q04.9 Congenital malformation of brain, unspecified; R26.89 Other abnormalities of gait and mobility | CPT/HCPCS: 99212 ==